=== PATIENT | male | born 1935 | race Caucasian/White ===

== ENCOUNTER 2016-05-17 21:34 | Emergency (ER) | payer MEDICARE, OTHER ==
[~2016-05-17] VITALS: Ht 170.2 cm; Wt 72.6 kg
[~2016-05-17 21:34] MED LIST: DM/P295L13 PO; ENXP40I.4 SQ; HTN MED; LISI1TAB PO; LORA10TA7 PO; TR025C15 TOP
[2016-05-17 22:02] LABS: BASOPHILS # (AUTO) 0.1 10^3/uL (0.0-0.1); BASOPHILS % (AUTO) 0 % (0-10); EOSINOPHILS # (AUTO) 0.2 10^3/uL (0.0-0.3); EOSINOPHILS % (AUTO) 1 % (0-10); LYMPHOCYTES # (AUTO) 1.5 X 10^3 (1.0-4.0); LYMPHOCYTES % (AUTO) 9 % (12-44); MEAN CORPUSCULAR HEMOGLOBIN 32 PG (25-34); MEAN CORPUSCULAR HGB CONC 35 G/DL (32-36); MEAN CORPUSCULAR VOLUME 94 FL (80-99); MEAN PLATELET VOLUME 9.2 FL (7.4-10.4); MONOCYTES % (AUTO) 6 % (0-12); NEUTROPHILS # (AUTO) 14.1 X 10^3 (1.8-7.8); NEUTROPHILS % (AUTO) 84 % (42-75); PLATELET COUNT 168 10^3/uL (130-400); RED BLOOD COUNT 4.91 10^6/uL (4.35-5.85); RED CELL DISTRIBUTION WIDTH 12.8 % (10.0-14.5); WHITE BLOOD COUNT 16.8 10^3/uL (4.3-11.0)
[2016-05-17 22:15] LABS: BAND NEUTROPHILS 0 %; BASOPHILS % (MANUAL) 0 %; EOSINOPHILS % (MANUAL) 0 %; LYMPHOCYTES % (MANUAL) 22 %; NEUTROPHILS % (MANUAL) 77 %
[2016-05-17 22:17] LABS: CALCIUM 8.8 MG/DL (8.5-10.1); CREATININE SERUM 1.95 MG/DL (0.60-1.30); POTASSIUM 4.1 MMOL/L (3.6-5.0)
--- NOTE | 2016-05-17 22:17 | ED Back Pain ---
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 DENIES INJURY BUT DOES REPORT DID WORK OUTSIDE YESTERDAY AND WAS PERFORMING YARD WORK, HEAVY LIFTING Nursing Sepsis Screen: No Definite Risk Source of Information: Patient Exam Limitations: No Limitations (CHRIS BAE APRN) History of Present Illness Time Seen by Provider: 22:14 Initial Comments To ER with sudden onset right low back pain. The pain radiated down both of his legs. This was sudden onset 1 hour prior to arrival walking. Denies injury. No loss of bowel or bladder control. No saddle anesthesia. No fevers or chills. He was given 200mcg of Fentanyl in the ambulance on the way to the hospital. Location: Lumbar Spine Timing/Duration: 1-3 Hours Severity: Severe Modifying Factors: Worse With Movement Associated Symptoms: lower back pain (CHRIS BAE APRN) Allergies and Home Medications Allergies Coded Allergies: Gramicidin D (Unverified Allergy, Unknown, 05/16/06) Iodine (Unverified Allergy, Unknown, 05/16/06) Neomycin (Unverified Allergy, Unknown, 05/16/06) Polymyxin B (Unverified Allergy, Unknown, 05/16/06) Soap *RETIRED-06/24/10 (Unverified Allergy, Unknown, 05/16/06) bacitracin (Unverified Allergy, Unknown, 05/16/06) povidone-iodine (Unverified Allergy, Unknown, 05/16/06) Home Medications Enoxaparin Sodium 40 Mg/0.4 Ml Disp.syrin #7 1 EACH SQ DAILY (Reported) Hctz/Lisinopril 1 Each Tablet 1 EACH PO DAILY (Reported) Loratadine 10 Mg Tablet 10 MG PO DAILY (Reported) Triamcinolone Acet 15 Gm Tube 0 TOP TID (Reported) APPLY SPRARINGLY TO AFFECTED AREA(S) Constitutional: see HPI EENTM: see HPI Respiratory: no symptoms reported Cardiovascular: no symptoms reported Genitourinary: no symptoms reported Musculoskeletal: see HPI back pain Skin: no symptoms reported Psychiatric/Neurological: No Symptoms Reported (CHRIS BAE APRN) Past Buiopde-Emmdvr-Jbbeax Hx Patient Social History Alcohol Use: Denies Use Recreational Drug Use: No Smoking Status: Never a Smoker Recent Foreign Travel: No Contact w/Someone Who Travel: No Recent Infectious Disease Expo: No Recent Hopitalizations: No (CHRIS BAE APRN) Surgeries HX Surgeries: Yes (5 YRS AGO, 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) (CHRIS BAE APRN) Respiratory Hx Respiratory Disorders: No (CHRIS BAE APRN) Reproductive System Hx Reproductive Disorders: No (CHRIS BAE APRN) Genitourinary Hx Genitourinary Disorders: No (CHRIS BAE APRN) Gastrointestinal Hx Gastrointestinal Disorders: No (CHRIS BAE APRN) Endocrine Hx Endocrine Disorders: No (CHRIS BAE APRN) Blood Transfusions Hx Blood Disorders: No (CHRIS BAE APRN) Physical Exam Vital Signs Vital Sign - Last 12Hours 05/17/16 05/17/16 21:34 23:50 Temp 95.0 Pulse 88 Resp 16 B/P 187/111 Pulse Ox 99 O2 Delivery Room Air O2 Flow Rate 2.00 (MARSHALL ADAMS DO) Vital Signs Capillary Refill : Less Than 3 Seconds (CHRIS BAE APRN) General Appearance: No Apparent Distress WD/WN HEENT: PERRL/EOMI TMs Normal Neck: Full Range of Motion Normal Inspection Respiratory: No Accessory Muscle Use No Respiratory Distress Gastrointestinal: Normal Bowel Sounds Non Tender Soft Extremity: Normal Capillary Refill Normal Inspection Other (the posterior tibial pulse in the left leg is +2. I do not palpate a posterior tibial pulse in the right leg however this foot is warm) Neurologic/Psychiatric: Alert Skin: Normal Color Warm/Dry (CHRIS BAE APRN) Progress/Results/Core Measures Results/Orders Lab Results Laboratory Tests Test 05/17/16 21:54 Range/Units Anion Gap 14 5-14 MMOL/L BUN/Creatinine Ratio 12 Band Neutrophils 0 % Basophils # (Auto) 0.1 0.0-0.1 10^3/uL Basophils % (Manual) 0 % Basophils (%) (Auto) 0 0-10 % Blood Morphology Comment NORMAL Blood Urea Nitrogen 24 H 7-18 MG/DL Calcium Level 8.8 8.5-10.1 MG/DL Carbon Dioxide Level 20 L 21-32 MMOL/L Chloride Level 106 98-107 MMOL/L Creatinine 1.95 H 0.60-1.30 MG/DL Eosinophils # (Auto) 0.2 0.0-0.3 10^3/uL Eosinophils % (Manual) 0 % Eosinophils (%) (Auto) 1 0-10 % Erythrocyte Sedimentation Rate 3 0-30 MM/HR Estimat Glomerular Filtration Rate 33 Glucose Level 139 H 70-105 MG/DL Hematocrit 46 40-54 % Hemoglobin 15.9 13.3-17.7 G/DL Lymphocytes # (Auto) 1.5 1.0-4.0 X 10^3 Lymphocytes % (Manual) 22 % Lymphocytes (%) (Auto) 9 L 12-44 % Mean Corpuscular Hemoglobin 32 25-34 PG Mean Corpuscular Hemoglobin Concent 35 32-36 G/DL Mean Corpuscular Volume 94 80-99 FL Mean Platelet Volume 9.2 7.4-10.4 FL Monocytes # (Auto) 1.0 0.0-1.0 X 10^3 Monocytes % (Manual) 1 % Monocytes (%) (Auto) 6 0-12 % Neutrophils # (Auto) 14.1 H 1.8-7.8 X 10^3 Neutrophils % (Manual) 77 % Neutrophils (%) (Auto) 84 H 42-75 % Platelet Count 168 130-400 10^3/uL Potassium Level 4.1 3.6-5.0 MMOL/L Red Blood Count 4.91 4.35-5.85 10^6/uL Red Cell Distribution Width 12.8 10.0-14.5 % Sodium Level 140 135-145 MMOL/L White Blood Count 16.8 H 4.3-11.0 10^3/uL (MARSHALL ADAMS DO) Medications Given in ED Current Medications Medications Dose Ordered Sig/Alejandra Route Start Time Stop Time Status Last Admin Dose Admin Esmolol HCl 250 ml STK-MED ONCE IV 05/17/16 23:44 05/17/16 23:46 DC 05/17/16 23:50 (MARSHALL ADAMS DO) Vital Signs/I&O Vital Sign - Last 12Hours 05/17/16 05/17/16 21:34 23:50 Temp 95.0 98.5 Pulse 88 82 Resp 16 16 B/P 187/111 160/89 Pulse Ox 99 96 O2 Delivery Room Air Nasal Cannula O2 Flow Rate 2.00 (MARSHALL ADAMS DO) Blood Pressure Mean: 136 Progress Note : Progress Note Discussed case c/ Dr. Lundberg, the Cardiothoracic surgeon clinical practice consultant @ [facility] ( patient's referring hospital of choice). He has accepted the patient in transfer to the ICU and requests we start him on a Esmolol drip in effort to lower his systolic BP to 110 &/or pulse to 60. (MARSHALL ADAMS DO) ECG Initial ECG Impression Date: May 17, 2016 Initial ECG Impression Time: 23:45 Initial ECG Rate: 83 Initial ECG Rhythm: Normal Sinus Initial ECG Impression: Normal Initial ECG Comparisson: No Previous ECG Available (MARSHALL ADAMS DO) Diagnostic Imaging Diagonstic Imaging: CT, Ultrasound (apparent dissecting AAA) Plain Films/CT/US/NM/MRI: abdomen, pelvis ((+) AAA) Reviewed: Reviewed [place] Study (MARSHALL ADAMS DO) Departure Communication Progress Notes 2250-care turned over to Dr. Adams. CT abdomen and pelvis without contrast pending and ultrasound of the aorta and right leg arterial system pending. (CHRIS BAE APRN) Impression Impression: Primary Impression: Dissecting abdominal aortic aneurysm (AAA) Disposition: 02 XFER SHT-TRM HOSP Condition: Stable Transfer Transfer Time: 23:36 Transfer Facility: [facility] Method of Transfer: Air (MARSHALL ADAMS DO) Departure-Patient Inst. Referrals: MIKAL BOYER DO (PCP/Family) Primary Care Physician CHRIS BAE APRN May 17, 2016 22:17 MARSHALL ADAMS DO May 17, 2016 23:59
[2016-05-17] MEDS ORDERED: LABETALOL HCL 20 MG/4 ML VIAL IV ONE (22:30)
[2016-05-17 23:08] LABS: ERYTHROCYTE SEDIMENTATION RATE 3 MM/HR (0-30)
[2016-05-17] MEDS ORDERED: ESMOLOL IV ONE (23:39)
[2016-05-17] MEDS ORDERED: ESMOLOL DRIP PREMIX 250 ML IV ONE (23:44)
[2016-05-18 00:29] VITALS: BP 158/92
--- NOTE | 2016-05-18 07:19 | Diagnostic Imaging Report ---
INDICATION: Weak pulse right leg. FINDINGS: Real-time imaging shows no significant atherosclerotic plaquing. The Doppler sampling shows normal biphasic waveforms throughout the lower extremity to the ankle. There is noted a large popliteal aneurysm with thrombus present. There is no evidence of occlusive disease. Popliteal aneurysm measured approximately 3 cm in greatest dimension. IMPRESSION: 1. Popliteal aneurysm with mural thrombus. 2. Normal velocities and waveforms noted throughout the right lower extremity with no evidence of occlusive disease. These findings are in agreement with the preliminary report. Dictated by: Dictated on workstation # [id number]
--- NOTE | 2016-05-18 07:31 | Diagnostic Imaging Report ---
INDICATION: Abdominal pain. FINDINGS: There is abdominal aneurysm in the mid to distal aorta. This measures 4.2 cm in greatest diameter. There is mural thrombus present. Real-time imaging does suggest a dissection with mobile flap demonstrated. No evidence of periaortic fluid. IMPRESSION: Abdominal aortic aneurysm measuring 4.2 cm with probable dissection noted. Would recommend contrasted imaging for confirmation. Dictated by: Dictated on workstation # [id number]
--- NOTE | 2016-05-18 07:38 | Diagnostic Imaging Report ---
PROCEDURE: CT abdomen and pelvis without contrast. TECHNIQUE: Multiple contiguous axial images were obtained through the abdomen and pelvis without the use of intravenous contrast. INDICATION: Low back pain. FINDINGS: Lung bases are clear. Aorta is densely calcified. There is aneurysmal dilatation of the distal aorta measuring upwards of 5.2 x 4.2 cm in the distal aorta. There is no evidence of aortic rupture. No periaortic fluid present. There is no free fluid present. Liver appears normal. The gallbladder and bile ducts are normal. Pancreas and spleen are normal. Adrenal glands are normal. Kidneys show no evidence of obstruction or calculi. There is a cyst in the midportion of the right kidney anteriorly measuring 1.5 cm. Bowel gas pattern appears normal with no obstruction. There is no free air or free fluid. The appendix is visualized and normal. There is diverticulosis of the sigmoid colon without evidence of diverticulitis. IMPRESSION: Abdominal aortic aneurysm involving the distal aorta measuring upwards of 5.2 x 4.2 cm. Aortic dissection cannot be excluded with noncontrasted study. No evidence of aortic rupture. These findings are in agreement with preliminary report. Dictated by: Dictated on workstation # [id number]
--- NOTE | 2016-05-18 07:43 | Diagnostic Imaging Report ---
PROCEDURE: CT lumbar spine without contrast. TECHNIQUE: Multiple contiguous axial images were obtained through the lumbar spine without the use of intravenous contrast. Sagittal and coronal reformations were then performed. INDICATION: Severe back pain. FINDINGS: Sagittal and coronal images show good alignment of the vertebral bodies with minimal scoliosis. No evidence of compression fractures. Facets are intact. Advanced degenerative facet disease noted throughout. There is also advanced degenerative disc disease throughout with loss of disc space height and large bony osteophytes anteriorly. There is moderate foraminal encroachment noted on the left at L3-L4 and L4-L5. SI joints show degenerative changes. There is abdominal aortic aneurysm. See previous CT abdomen report and aortic ultrasound report. IMPRESSION: 1. 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 No acute bony abnormalities. 2. Abdominal aortic aneurysm. See CT abdomen and pelvis report as well as abdominal aortic ultrasound report for detail. Dictated by: Dictated on workstation # [id number]
== END 2016-05-18 00:29 | disposition short-term general hospital (02) ==
LOC: EDUNIT# 21:35 → ER 21:37
DX: I71.4 Abdominal aortic aneurysm, without rupture (principal); I82.431 Acute embolism and thrombosis of right popliteal vein; M51.36 Other intervertebral disc degeneration, lumbar region; Z79.899 Other long term (current) drug therapy
CPT/HCPCS: 36415; 72131; 74176; 76775; 80048; 85007; 85027; 85652; 93926; 96365

== ENCOUNTER → 2016-06-20 | Outpatient (CLI) | payer MEDICARE, OTHER ==
--- OUTSIDE RECORDS SUMMARY | 2016-06-20 09:29 | XMS REPORT | Continuity of Care Document ---
Author Author [facility] Organization [facility] Address Unknown Phone Unavailable Care Team Providers Care Drawing Operator Name Role Phone MIKAL BOYER DO PCP Insurance Providers Payer Name Policy Number Subscriber Name Relationship [employer] [id number] Eric Willingham 18 Self / Same As Patient Comm Crossover Enter Ins Name [id number] Eric Willingham 18 Self / Same As Patient Advance Directives Directive Response Recorded Date/Time Advance Directives No 05/17/16 9:34pm Resuscitation Status Full Code 05/17/16 9:34pm Chief Complaint and Reason for Visit Chief Complaint Back Problems Reason for Visit Dissecting abdominal aortic aneurysm (AAA) Problems Active Problems Medical Problem Onset Date Status Dissecting abdominal aortic aneurysm (AAA) Unknown Acute Medications Current Home Medications Medication Dose Units Route Directions Days/Qty Instructions Start Date Hctz/Lisinopril (Zestoretic) 1 Each 1 Each Oral Daily 09/29/11 Loratadine 10 Mg 10 Mg Oral Daily 09/29/11 Triamcinolone Acetonide 15 Gm 0 Topically Three Times A Day APPLY SPRARINGLY TO AFFECTED AREA(S) 09/29/11 Enoxaparin Sodium 40 Mg/0.4 Ml 1 Each Sub-Q Daily 7 10/04/11 Social History Social History Problem Response Recorded Date/Time Alcohol Use Denies Use 05/17/2016 9:34pm Recreational Drug Use No 05/17/2016 9:34pm Recent Foreign Travel No 05/17/2016 9:34pm Recent Infectious Disease Exposure No 05/17/2016 9:34pm Hospitalization with Isolation Denies 05/17/2016 9:34pm Smoking Status Never a Smoker 05/17/2016 9:34pm Recent Hopitalizations No 05/17/2016 9:34pm Hospitalization with Isolation Denies 05/17/2016 9:34pm Query Response Start Date Stop Date Smoking Status Never a Smoker Hospital Discharge Instructions No hospital discharge instructions. Plan of Care Discharge Date 05/18/16 12:29am Disposition 02 XFER SHT-TRM HOSP Condition at Discharge Stable Prescriptions See Medication Section Referrals MIKAL BOYER DO - Primary Care Physician Functional Status No functional status results. Allergies, Adverse Reactions, Alerts Allergen Type Severity Reaction Status Last Updated iodine ([id number]) Allergy Unknown Active 05/16/06 Soap *RETIRED-06/24/10 Allergy Unknown Active 05/16/06 neomycin ([id number]) Allergy Unknown Active 05/16/06 bacitracin ([id number]) Allergy Unknown Active 05/16/06 gramicidin D ([id number]) Allergy Unknown Active 05/16/06 povidone-iodine ([id number]) Allergy Unknown Active 05/16/06 Polymyxin b Allergy Unknown Active 05/16/06 Immunizations No immunization records. Vital Signs Acute Vital Signs Vital Response Date/Time Temperature (Fahrenheit) 98.8 degrees F (97.6 - 99.5) 05/18/2016 12:29am Temperature (Calculated Celsius) 37.22715 degrees C (36.4 - 37.5) 05/18/2016 12:29am Temperature Source Tympanic 05/18/2016 12:29am Pulse Rate (adult) 72 bpm (60 - 90) 05/18/2016 12:29am Respiratory Rate 18 bpm (12 - 24) 05/18/2016 12:29am O2 Sat by Pulse Oximetry 96 % (88 - 100) 05/18/2016 12:29am Blood Pressure 158/92 mm Hg 05/18/2016 12:29am Blood Pressure Mean 112 mm Hg 05/17/2016 11:50pm Pain Numeric Pain Scale 0-No Pain 05/18/2016 12:29am Pain Intensity 0 05/17/2016 11:50pm Height (Feet) 5 feet 05/17/2016 9:34pm Height (Inches) 7 inches 05/17/2016 9:34pm Height (Calculated Centimeters) 170.771798 cm 05/17/2016 9:34pm Weight (Pounds) 160 pounds 05/17/2016 9:34pm Weight (Calculated Kilograms) 72.859957 kilograms 05/17/2016 9:34pm Capillary Refill Capillary Refill Less Than 3 Seconds 05/17/2016 9:34pm Height 5 ft 7 in Weight 160 lb Body Mass Index 25.1 kg/m^2 Results Laboratory Results Test Name Result Units Flags Reference Collection Date/Time Result Date/ Time Comments White Blood Count 16.8 10^3/uL H 4.3-11.0 05/17/2016 9:54pm 05/17/2016 10 :03pm Red Blood Count 4.91 10^6/uL 4.35-5.85 05/17/2016 9:54pm 05/17/2016 10: 03pm Hemoglobin 15.9 G/DL 13.3-17.7 05/17/2016 9:54pm 05/17/2016 10:03pm Hematocrit 46 % 40-54 05/17/2016 9:54pm 05/17/2016 10:03pm Mean Corpuscular Volume 94 FL 80-99 05/17/2016 9:54pm 05/17/2016 10: 03pm Mean Corpuscular Hemoglobin 32 PG 25-34 05/17/2016 9:54pm 05/17/2016 10 :03pm Mean Corpuscular Hemoglobin Concent 35 G/DL 32-36 05/17/2016 9:54pm 10:03pm Red Cell Distribution Width 12.8 % 10.0-14.5 05/17/2016 9:54pm 2016 10:03pm Platelet Count 168 10^3/uL 130-400 05/17/2016 9:54pm 05/17/2016 10: 03pm Mean Platelet Volume 9.2 FL 7.4-10.4 05/17/2016 9:54pm 05/17/2016 10: 03pm Neutrophils (%) (Auto) 84 % H 42-75 05/17/2016 9:54pm 05/17/2016 10:03pm Lymphocytes (%) (Auto) 9 % L 12-44 05/17/2016 9:54pm 05/17/2016 10:03pm Monocytes (%) (Auto) 6 % 0-12 05/17/2016 9:54pm 05/17/2016 10:03pm Eosinophils (%) (Auto) 1 % 0-10 05/17/2016 9:54pm 05/17/2016 10:03pm Basophils (%) (Auto) 0 % 0-10 05/17/2016 9:54pm 05/17/2016 10:03pm Neutrophils # (Auto) 14.1 X 10^3 H 1.8-7.8 05/17/2016 9:54pm 05/17/2016 10:03pm Lymphocytes # (Auto) 1.5 X 10^3 1.0-4.0 05/17/2016 9:54pm 05/17/2016 10 :03pm Monocytes # (Auto) 1.0 X 10^3 0.0-1.0 05/17/2016 9:54pm 05/17/2016 10: 03pm Eosinophils # (Auto) 0.2 10^3/uL 0.0-0.3 05/17/2016 9:54pm 05/17/2016 10:03pm Basophils # (Auto) 0.1 10^3/uL 0.0-0.1 05/17/2016 9:54pm 05/17/2016 10: 03pm Neutrophils % (Manual) 77 % 05/17/2016 9:54pm 05/17/2016 10:16pm Band Neutrophils 0 % 05/17/2016 9:54pm 05/17/2016 10:16pm Lymphocytes % (Manual) 22 % 05/17/2016 9:54pm 05/17/2016 10:16pm Monocytes % (Manual) 1 % 05/17/2016 9:54pm 05/17/2016 10:16pm Eosinophils % (Manual) 0 % 05/17/2016 9:54pm 05/17/2016 10:16pm Basophils % (Manual) 0 % 05/17/2016 9:54pm 05/17/2016 10:16pm Blood Morphology Comment NORMAL 05/17/2016 9:54pm 05/17/2016 10: 16pm Erythrocyte Sedimentation Rate 3 MM/HR 0-30 05/17/2016 9:54pm 2016 11:08pm Sodium Level 140 MMOL/L 135-145 05/17/2016 9:54pm 05/17/2016 10:18pm Potassium Level 4.1 MMOL/L 3.6-5.0 05/17/2016 9:54pm 05/17/2016 10: 18pm Chloride Level 106 MMOL/L 98-107 05/17/2016 9:54pm 05/17/2016 10:18pm Carbon Dioxide Level 20 MMOL/L L 21-32 05/17/2016 9:54pm 05/17/2016 10: 18pm Anion Gap 14 MMOL/L 5-14 05/17/2016 9:54pm 05/17/2016 10:18pm Blood Urea Nitrogen 24 MG/DL H 7-18 05/17/2016 9:54pm 05/17/2016 10:18pm Creatinine 1.95 MG/DL H 0.60-1.30 05/17/2016 9:54pm 05/17/2016 10:18pm BUN/Creatinine Ratio 12 05/17/2016 9:54pm 05/17/2016 10:18pm Estimat Glomerular Filtration Rate 33 05/17/2016 9:54pm 05/17/2016 10:18pm GFR INTERPRETIVE DATA UNITS FOR ESTIMATED GFR (eGFR): mL/min/1.73 M2 REFERENCE RANGE FOR ESTIMATED GFR (eGFR) eGFR NORMAL eGFR >60 MODERATELY DECREASED eGFR 30-59 SEVERLY DECREASED eGFR 15-29 KIDNEY FAILURE <15 (OR DIALYSIS) Glucose Level 139 MG/DL H 70-105 05/17/2016 9:54pm 05/17/2016 10:18pm Calcium Level 8.8 MG/DL 8.5-10.1 05/17/2016 9:54pm 05/17/2016 10:18pm Procedures No known history of procedures. Encounters Encounter Location Arrival/Admit Date Discharge/Depart Date Attending Provider Departed Emergency Room [facility] 05/17/16 9:37pm 05/18 12:29am CHRIS BAE APRN Recent Diagnosis
--- NOTE | 2016-06-20 10:38 | Diagnostic Imaging Report ---
PROCEDURE: US Bilateral lower extremity arterial. TECHNIQUE: Multiple real-time grayscale images are obtained through both lower extremity arterial systems with color Doppler imaging and color Doppler spectral analysis. INDICATION: Followup popliteal artery aneurysm. FINDINGS: The right lower extremity arteries demonstrate patency with color flow and triphasic waveforms in the femoropopliteal arteries transitioning into biphasic waveforms within the posterior tibial and dorsalis pedis arteries. There is diminished flow velocity in the right posterior tibial artery of 17 cm/s. The velocity in the right dorsalis pedis is 56 cm/s. There is no significant elevated velocity to suggest a high-grade focal stenosis. The popliteal artery, however, has a 3.1 cm aneurysm with significant intramural thrombus seen. The central lumen is patent. In the left lower extremity, there is color Doppler flow seen with biphasic waveforms in the femoropopliteal and infrapopliteal arteries. The left popliteal artery demonstrates aneurysmal dilatation to 2 cm. There is mild to moderate intramural thrombus seen. There is no evidence of high-grade stenosis. When compared with the right lower extremity arterial ultrasound from 05/17/2016, there is no significant change in the right popliteal artery aneurysm. No prior study is available to compare the left lower extremity arteries. 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 The findings were discussed with Dr. Lundberg by Dr. Galan at time of dictation. Dictated by: Dictated on workstation # [id number]
--- NOTE | 2016-06-20 12:20 | Diagnostic Imaging Report ---
PROCEDURE: CT abdomen and pelvis without contrast. TECHNIQUE: Multiple contiguous axial images were obtained through the abdomen and pelvis without the use of intravenous contrast. INDICATION: Abdominal aortic aneurysm. FINDINGS: The lung bases appear clear. The liver, the gallbladder, the spleen, the pancreas, and adrenal glands appear unremarkable for unenhanced exam. The kidneys demonstrate no hydronephrosis. When compared to 05/17/2016, there is endovascular repair with an aortoiliac bifurcating graft seen in place. The landing zone of the stent graft is in the common iliac artery on both sides. There is improvement in the previously seen heterogeneous density within the aneurysm sac and there is interval minimal decrease in the maximum diameter of the aneurysm sac from 5.2 to 5 cm on the current exam. There is no perianeurysmal hematoma. No significant free fluid or fluid collection in the abdomen or pelvis. There is numerous diverticulosis. No diverticulitis. Advanced degenerative changes in the lumbar spine with mild right convex scoliosis seen. There is internal fixation hardware in the right proximal femur partially visualized. IMPRESSION: 1. Status post EAVR with minimal decrease in the size of the infrarenal AAA, now at 5 cm in maximum diameter. 2. Diverticulosis. No diverticulitis. Dictated by: Dictated on workstation # [id number]
== END ==
LOC: RAD 09:25
PROVIDERS: ATTEND Thoracic Surgery (Cardiothoracic Vascular Surgery)
DX: I72.4 Aneurysm of artery of lower extremity (principal); N28.9 Disorder of kidney and ureter, unspecified; Z95.828 Presence of other vascular implants and grafts
CPT/HCPCS: 74176; 93925

== ENCOUNTER → 2016-06-23 | Outpatient (CLI) | payer MEDICARE, OTHER ==
--- NOTE | 2016-06-23 12:30 | Diagnostic Imaging Report ---
PROCEDURE: US Aorta Doppler. TECHNIQUE: Multiple real time grayscale images were obtained over the abdominal aorta in various projections. INDICATION: Abdominal aortic aneurysm repair. FINDINGS: Ultrasonography of the abdominal aorta is performed. Portions of the abdominal aorta proximally are obscured due to overlying bowel. There is endoluminal stent graft within the abdominal aorta. Midportion of the abdominal aorta measures 2.4 x 3.1 cm in size including the aneurysm sac. Distally the aorta measures 2.7 x 2.3 cm including the aneurysm sac. Right iliac artery is 1.5 cm in diameter with left iliac diameter of 1.1 cm. Arterial flow is seen within the stent graft. There is no evidence of retroperitoneal fluid collection. IMPRESSION: Patency of abdominal aortic stent graft. Proximal aorta is obscured with midportion measuring 3.1 x 2.4 cm and distal aorta measuring 2.7 x 2.3 cm. Dictated by: Dictated on workstation # [id number]
== END ==
LOC: RAD 09:22
PROVIDERS: ATTEND Thoracic Surgery (Cardiothoracic Vascular Surgery)
DX: I71.4 Abdominal aortic aneurysm, without rupture (principal); N28.9 Disorder of kidney and ureter, unspecified; Z95.828 Presence of other vascular implants and grafts
CPT/HCPCS: 93978

== ENCOUNTER → 2016-07-28 | Outpatient (CLI) | payer MEDICARE, OTHER ==
[2016-07-28 08:46] LABS: MEAN PLATELET VOLUME 9.5 FL (7.4-10.4); RED BLOOD COUNT 4.7 10^6/uL (4.35-5.85); RED CELL DISTRIBUTION WIDTH 13.1 % (10.0-14.5); WHITE BLOOD COUNT 8.2 10^3/uL (4.3-11.0)
[2016-07-28 09:02] LABS: ALBUMIN 4.2 G/DL (3.2-4.5); BILIRUBIN,TOTAL 0.8 MG/DL (0.1-1.0); CALCIUM 9.3 MG/DL (8.5-10.1); CREATININE SERUM 1.76 MG/DL (0.60-1.30); POTASSIUM 4.2 MMOL/L (3.6-5.0)
[2016-07-28 09:04] LABS: BILIRUBIN,URINE NEGATIVE (NEGATIVE); KETONES,URINE NEGATIVE (NEGATIVE); LEUKOCYTE ESTERASE ,URINE 1+ (NEGATIVE); NITRITE,URINE NEGATIVE (NEGATIVE); PH,URINE 6 (5-9); PROTEIN,URINE 1+ (NEGATIVE); UROBILINOGEN,URINE NORMAL (NORMAL)
[2016-07-28 09:15] LABS: SQUAMOUS EPITHELIAL CELL,UR RARE /HPF; WBC,URINE 0-2 /HPF
--- NOTE | 2016-07-28 13:36 | Diagnostic Imaging Report ---
PA and lateral views of the chest. INDICATION: Preoperative evaluation. FINDINGS: The lungs are hyperinflated with no focal infiltrate. Background interstitial thickening is seen compatible with COPD. The heart size is normal. No effusion or pneumothorax. Mediastinum and brooklynn appear unremarkable. There is an aortic endograft in the abdomen identified. Degenerative changes and osseous structures seen. IMPRESSION: COPD. No acute process. Dictated by: Dictated on workstation # [id number]
== END ==
LOC: CARD 08:11
PROVIDERS: ATTEND Thoracic Surgery (Cardiothoracic Vascular Surgery)
DX: Z01.818 Encounter for other preprocedural examination (principal); I72.4 Aneurysm of artery of lower extremity
CPT/HCPCS: 36415; 71020; 80053; 81000; 85027; 93005

== ENCOUNTER → 2016-09-13 | Outpatient (CLI) | payer MEDICARE, OTHER ==
--- NOTE | 2016-09-13 14:19 | Diagnostic Imaging Report ---
PROCEDURE: US Bilateral lower extremity arterial. TECHNIQUE: Multiple real-time grayscale images are obtained through both lower extremity arterial systems with color Doppler imaging and color Doppler spectral analysis. INDICATION: Popliteal artery aneurysm. CORRELATION STUDY: 06/20/2016 FINDINGS: The bilateral lower extremity arterial systems are patent at the level of the ankles. There is mixed, predominantly triphasic with some areas of scattered biphasic waveforms present. No significant velocity change or findings to suggest a focal area of stenosis. At the level of the right popliteal artery, there has been apparent aneurysm repair with placement of a stent which is patent. On the left, there is a left popliteal artery aneurysm measuring approximately 14 x 17 mm. IMPRESSION: 1. The bilateral lower extremity arterial systems are patent to the level of the ankles. No high degree velocity change to suggest a focal area of stenosis. 2. Apparent interval placement of a stent at the right popliteal artery which is patent. 3. Relatively stable left popliteal artery aneurysm. Dictated by: Dictated on workstation # [id number]
== END ==
LOC: RAD 08:46
PROVIDERS: ATTEND Nurse Practitioner
DX: I72.4 Aneurysm of artery of lower extremity (principal)
CPT/HCPCS: 93925

== ENCOUNTER → 2016-11-04 | Outpatient (CLI) | payer MEDICARE, OTHER ==
--- NOTE | 2016-11-04 19:22 | Diagnostic Imaging Report ---
Three views of the left ribs. INDICATION: Injury. FINDINGS: There is no fracture or dislocation. There is an aortic graft partially visualized in the abdominal aorta. The right lung demonstrates minimal basilar atelectasis or scarring. IMPRESSION: No fracture seen. Dictated by: Dictated on workstation # [id number]
== END ==
LOC: RAD 11:17
PROVIDERS: ATTEND Family Medicine
DX: S29.9XXA Unspecified injury of thorax, initial encounter (principal); X58.XXXA Exposure to other specified factors, initial encounter; Y99.8 Other external cause status
CPT/HCPCS: 71100

== ENCOUNTER → 2017-02-27 | Outpatient (CLI) | payer MEDICARE, OTHER ==
--- NOTE | 2017-02-27 22:11 | Diagnostic Imaging Report ---
PROCEDURE: US Bilateral lower extremity arterial. TECHNIQUE: Multiple real-time grayscale images are obtained through both lower extremity arterial systems with color Doppler imaging and color Doppler spectral analysis. INDICATION: Peripheral vascular disease. In the right leg, there are normal velocities and waveforms from the groin to the knee. There is a stent in the right popliteal artery with a surrounding aneurysm sac seen. There is no sonographically detectable flow in the aneurysm sac. Dorsalis pedis is patent in the right foot. The right posterior tibial artery appeared to occlude distally. In left leg, there are normal velocities and waveforms from the groin to the knee. There is a popliteal artery aneurysm on the left that measures 1.7 cm in diameter with a thin rim of thrombus. The dorsalis pedis and posterior tibial arteries are both patent at the ankle. IMPRESSION: Patient has bilateral popliteal artery aneurysms. The left popliteal artery aneurysm has been previously stented with residual aneurysm sac. The right popliteal artery aneurysm measures 17 mm in diameter. It appears similar to a comparison study dated 09/13/2016. Dictated by: Dictated on workstation # [id number]
== END ==
LOC: RAD 12:36
PROVIDERS: ATTEND Thoracic Surgery (Cardiothoracic Vascular Surgery)
DX: I72.4 Aneurysm of artery of lower extremity (principal); Z95.820 Peripheral vascular angioplasty status with implants and grafts
CPT/HCPCS: 93925

== ENCOUNTER → 2017-03-28 | Outpatient (CLI) | payer MEDICARE, OTHER ==
--- NOTE | 2017-03-28 14:14 | Diagnostic Imaging Report ---
INDICATION: Cold right foot and pain for several days. TECHNIQUE: Routine sonographic evaluation with color and duplex Doppler imaging performed of the right lower extremity arterial system. FINDINGS: There is absence of any detectable flow within the right lower leg. This originates at approximately the level of the distal superficial femoral artery and extending through the popliteal artery through the tibioperoneal trifurcation. There may be minimal amount of flow noted in the distal anterior and posterior tibial artery perhaps from collateral vessels. More proximally, there is flow within the common femoral artery as well as proximal and mid aspect of the superficial femoral artery becoming slightly dampened in the mid aspect and then with elevated velocity distally. IMPRESSION: There is essentially no detectable flow from level of the distal thigh through the remainder of the lower leg. There appears to be likely occlusion at the distal aspect of the superficial femoral artery, popliteal artery, and through the tibioperoneal trifurcation and calf vessels. (This is changed from previous examination of one month earlier.) Findings were provided to the referring physician by the fish net stringer at time of imaging. Dictated by: Dictated on workstation # [id number]
== END ==
LOC: RAD 12:14
PROVIDERS: ATTEND Family Medicine
DX: I73.9 Peripheral vascular disease, unspecified (principal)
CPT/HCPCS: 93926

== ENCOUNTER → 2017-04-10 | Outpatient (CLI) | payer MEDICARE, OTHER ==
[2017-04-10 10:08] LABS: ALBUMIN 3.6 GM/DL (3.2-4.5); CALCIUM 8.7 MG/DL (8.5-10.1); CREATININE SERUM 2.48 MG/DL (0.60-1.30); PHOSPHORUS 3.2 MG/DL (2.3-4.7); POTASSIUM 3.9 MMOL/L (3.6-5.0)
== END ==
LOC: LAB 09:25
PROVIDERS: ATTEND Nurse Practitioner
DX: N18.9 Chronic kidney disease, unspecified (principal)
CPT/HCPCS: 36415; 80069

== ENCOUNTER → 2017-04-24 | Outpatient (CLI) | payer MEDICARE, OTHER ==
[2017-04-24 09:19] LABS: BILIRUBIN,URINE NEGATIVE (NEGATIVE); CLARITY,URINE CLEAR; COLOR,URINE YELLOW; GLUCOSE, URINE (UA) NEGATIVE (NEGATIVE); KETONES,URINE NEGATIVE (NEGATIVE); LEUKOCYTE ESTERASE ,URINE NEGATIVE (NEGATIVE); NITRITE,URINE NEGATIVE (NEGATIVE); PH,URINE 5 (5-9); PROTEIN,URINE NEGATIVE (NEGATIVE); UROBILINOGEN,URINE NORMAL (NORMAL)
[2017-04-24 09:20] LABS: BASOPHILS % (AUTO) 1 % (0-10); EOSINOPHILS # (AUTO) 0.2 10^3/uL (0.0-0.3); EOSINOPHILS % (AUTO) 3 % (0-10); HEMATOCRIT 38 % (40-54); HEMOGLOBIN 12.8 G/DL (13.3-17.7); LYMPHOCYTES # (AUTO) 1.2 X 10^3 (1.0-4.0); LYMPHOCYTES % (AUTO) 19 % (12-44); MEAN CORPUSCULAR HEMOGLOBIN 32 PG (25-34); MEAN CORPUSCULAR HGB CONC 34 G/DL (32-36); MEAN CORPUSCULAR VOLUME 95 FL (80-99); MEAN PLATELET VOLUME 9.1 FL (7.4-10.4); MONOCYTES # (AUTO) 0.6 X 10^3 (0.0-1.0); MONOCYTES % (AUTO) 9 % (0-12); NEUTROPHILS # (AUTO) 4.2 X 10^3 (1.8-7.8); NEUTROPHILS % (AUTO) 68 % (42-75); PLATELET COUNT 217 10^3/uL (130-400); RED BLOOD COUNT 4.01 10^6/uL (4.35-5.85); RED CELL DISTRIBUTION WIDTH 13.8 % (10.0-14.5); WHITE BLOOD COUNT 6.2 10^3/uL (4.3-11.0)
[2017-04-24 09:37] LABS: ALBUMIN 4.2 GM/DL (3.2-4.5); CALCIUM 9.5 MG/DL (8.5-10.1); CREATININE SERUM 2.32 MG/DL (0.60-1.30); PHOSPHORUS 3.5 MG/DL (2.3-4.7); POTASSIUM 3.9 MMOL/L (3.6-5.0)
[2017-04-24 09:39] LABS: BACTERIA,URINE TRACE /HPF; WBC,URINE RARE /HPF
== END ==
LOC: LAB 08:41
PROVIDERS: ATTEND Internal Medicine Nephrology
DX: D64.9 Anemia, unspecified (principal); I12.9 Hypertensive chronic kidney disease with stage 1 through stage 4 chronic kidney disease, or unspecified chronic kidney disease; N18.4 Chronic kidney disease, stage 4 (severe); E78.2 Mixed hyperlipidemia; I71.4 Abdominal aortic aneurysm, without rupture
CPT/HCPCS: 36415; 80069; 81000; 82306; 82570; 82728; 83540; 83970; 84156; 85025

== ENCOUNTER → 2017-05-26 | Outpatient (CLI) | payer MEDICARE, OTHER ==
--- NOTE | 2017-05-26 12:04 | Diagnostic Imaging Report ---
INDICATION: Right knee pain. TIME OF EXAM: 11:58 AM FINDINGS: Three views of the right knee demonstrate normal alignment. The joint spaces are maintained. The articular surfaces are smooth. There is chondrocalcinosis of the medial and lateral compartments. No fracture or dislocation is seen. There may be a small effusion. Popliteal and distal femoral stent is noted. IMPRESSION: Chronic changes and probable small knee joint effusion. No acute bony abnormality is detected. Dictated by: Dictated on workstation # [id number]
== END ==
LOC: RAD 11:27
PROVIDERS: ATTEND Family Medicine
DX: M25.561 Pain in right knee (principal); M25.461 Effusion, right knee
CPT/HCPCS: 73562

== ENCOUNTER → 2017-08-30 | Outpatient (CLI) | payer MEDICARE, OTHER ==
[2017-08-30 11:56] LABS: MEAN PLATELET VOLUME 8.9 FL (7.4-10.4); RED BLOOD COUNT 4.59 10^6/uL (4.35-5.85); RED CELL DISTRIBUTION WIDTH 14.4 % (10.0-14.5); WHITE BLOOD COUNT 6.1 10^3/uL (4.3-11.0)
[2017-08-30 12:12] LABS: ALBUMIN 4.2 GM/DL (3.2-4.5); CALCIUM 9.3 MG/DL (8.5-10.1); CREATININE SERUM 2.69 MG/DL (0.60-1.30); PHOSPHORUS 3.4 MG/DL (2.3-4.7)
[2017-08-30 12:30] LABS: BILIRUBIN,URINE NEGATIVE (NEGATIVE); CLARITY,URINE CLEAR; COLOR,URINE YELLOW; GLUCOSE, URINE (UA) NEGATIVE (NEGATIVE); KETONES,URINE NEGATIVE (NEGATIVE); LEUKOCYTE ESTERASE ,URINE NEGATIVE (NEGATIVE); NITRITE,URINE NEGATIVE (NEGATIVE); PH,URINE 6 (5-9); PROTEIN,URINE NEGATIVE (NEGATIVE); UROBILINOGEN,URINE NORMAL (NORMAL)
[2017-08-30 12:42] LABS: BACTERIA,URINE TRACE /HPF; RBC,URINE RARE /HPF; SQUAMOUS EPITHELIAL CELL,UR 0-2 /HPF
== END ==
LOC: LAB 11:31
PROVIDERS: ATTEND Internal Medicine Nephrology
DX: I12.9 Hypertensive chronic kidney disease with stage 1 through stage 4 chronic kidney disease, or unspecified chronic kidney disease (principal); N18.4 Chronic kidney disease, stage 4 (severe); D64.9 Anemia, unspecified; E87.2 Acidosis
CPT/HCPCS: 36415; 80069; 81000; 82306; 82570; 82728; 83540; 83550; 83970; 84156; 85027

== ENCOUNTER → 2017-12-21 | Outpatient (CLI) | payer MEDICARE, OTHER ==
--- NOTE | 2017-12-21 11:54 | Diagnostic Imaging Report ---
US RIGHT LOW EXT [id number] Technique: Multi-projectional grayscale, color Doppler and spectral Doppler imaging of the right lower extremity arteries was performed. Indication: Severe right groin pain. Comparison: 03/28/2017 Findings: By color Doppler imaging, the common femoral, superficial femoral, proximal deep femoral, and popliteal arteries are patent. Spectral analysis shows biphasic waveforms to be present. A stent is present within the popliteal artery and remains patent. No flow is detected within the distal posterior tibial artery. However, very low velocity monophasic waveforms are detected in the dorsalis pedis. Impression: 1. No high-grade stenosis or occlusion within the proximal right lower extremity arteries. 2. Popliteal artery stent is patent. 3. 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 Dictated by: Dictated on workstation # [id number]
== END ==
LOC: RAD 10:54
PROVIDERS: ATTEND Family Medicine
DX: I73.9 Peripheral vascular disease, unspecified (principal); R10.31 Right lower quadrant pain; Z95.820 Peripheral vascular angioplasty status with implants and grafts
CPT/HCPCS: 93926

== ENCOUNTER → 2018-01-02 | Outpatient (CLI) | payer MEDICARE, OTHER ==
[2018-01-02 09:51] LABS: HEMOGLOBIN 15.1 G/DL (13.3-17.7); MEAN PLATELET VOLUME 9.4 FL (7.4-10.4); RED BLOOD COUNT 4.74 10^6/uL (4.35-5.85); RED CELL DISTRIBUTION WIDTH 13.3 % (10.0-14.5); WHITE BLOOD COUNT 6.4 10^3/uL (4.3-11.0)
[2018-01-02 09:58] LABS: BILIRUBIN,URINE NEGATIVE (NEGATIVE); CLARITY,URINE CLEAR; COLOR,URINE YELLOW; GLUCOSE, URINE (UA) NEGATIVE (NEGATIVE); KETONES,URINE NEGATIVE (NEGATIVE); LEUKOCYTE ESTERASE ,URINE 1+ (NEGATIVE); NITRITE,URINE NEGATIVE (NEGATIVE); PH,URINE 5 (5-9); PROTEIN,URINE 1+ (NEGATIVE); UROBILINOGEN,URINE NORMAL (NORMAL)
[2018-01-02 10:10] LABS: ALBUMIN 4.3 GM/DL (3.2-4.5); CALCIUM 9.5 MG/DL (8.5-10.1); CREATININE SERUM 2.35 MG/DL (0.60-1.30); PHOSPHORUS 3.5 MG/DL (2.3-4.7); POTASSIUM 4.7 MMOL/L (3.6-5.0)
[2018-01-02 10:19] LABS: RBC,URINE RARE /HPF
[2018-01-02 10:20] LABS: BACTERIA,URINE NEGATIVE /HPF; SQUAMOUS EPITHELIAL CELL,UR 0-2 /HPF; WBC,URINE 0-2 /HPF
== END ==
LOC: LAB 09:23
PROVIDERS: ATTEND Internal Medicine Nephrology
DX: I12.9 Hypertensive chronic kidney disease with stage 1 through stage 4 chronic kidney disease, or unspecified chronic kidney disease (principal); N18.4 Chronic kidney disease, stage 4 (severe); I71.4 Abdominal aortic aneurysm, without rupture; E87.2 Acidosis
CPT/HCPCS: 36415; 80069; 81000; 82306; 82570; 82728; 83540; 83970; 84156; 85027; 87088

== ENCOUNTER → 2018-09-18 | Outpatient (CLI) | payer MEDICARE, OTHER ==
[~2018-09-18] MED LIST changes: +ALBU18HF2 INH; +APIX2.5T PO; +AZIT250T12 PO; +CALC0.253 PO; +CHOL10007 PO; +CLOP75TA28 PO; +CODE118S4 PO; +FERR-84 PO; +MEMA10TA22 PO; +METO-333 PO; +SODI650T PO; +TAMS0.4C98 PO
[2018-09-18 16:41] LABS: BASOPHILS % (AUTO) 1 % (0-10); EOSINOPHILS % (AUTO) 0 % (0-10); HEMATOCRIT 44 % (40-54); HEMOGLOBIN 14.8 G/DL (13.3-17.7); LYMPHOCYTES # (AUTO) 0.5 X 10^3 (1.0-4.0); LYMPHOCYTES % (AUTO) 6 % (12-44); MEAN CORPUSCULAR HEMOGLOBIN 31 PG (25-34); MEAN CORPUSCULAR HGB CONC 34 G/DL (32-36); MEAN CORPUSCULAR VOLUME 91 FL (80-99); MEAN PLATELET VOLUME 9.7 FL (7.4-10.4); MONOCYTES # (AUTO) 0.6 X 10^3 (0.0-1.0); MONOCYTES % (AUTO) 7 % (0-12); NEUTROPHILS # (AUTO) 7.7 X 10^3 (1.8-7.8); NEUTROPHILS % (AUTO) 86 % (42-75); PLATELET COUNT 147 10^3/uL (130-400); RED CELL DISTRIBUTION WIDTH 13.8 % (10.0-14.5); WHITE BLOOD COUNT 8.9 10^3/uL (4.3-11.0)
[2018-09-18 16:52] LABS: CALCIUM 9.3 MG/DL (8.5-10.1); CREATININE SERUM 2.34 MG/DL (0.60-1.30); POTASSIUM 4.3 MMOL/L (3.6-5.0)
[2018-09-18 17:02] LABS: BAND NEUTROPHILS 5 %; BASOPHILS % (MANUAL) 1 %; EOSINOPHILS % (MANUAL) 0 %; LYMPHOCYTES % (MANUAL) 7 %; MONOCYTES % (MANUAL) 6 %; NEUTROPHILS % (MANUAL) 81 %; RBC MORPH NORMAL
--- NOTE | 2018-09-18 17:42 | Diagnostic Imaging Report ---
INDICATION: Cough and fever. PA and lateral views of the chest are obtained with comparison made to study of 07/28/2016. FINDINGS: There is air trapping, bilaterally. There are prominent interstitial markings throughout the lungs. There is no pneumothorax or consolidation. No significant pleural fluid is seen. IMPRESSION: Findings are suggestive of COPD without acute abnormality identified. Dictated by: Dictated on workstation # [id number]
== END ==
LOC: LAB 16:08
PROVIDERS: ATTEND Family Medicine
DX: J98.8 Other specified respiratory disorders (principal); R50.9 Fever, unspecified; R05 Cough; N28.9 Disorder of kidney and ureter, unspecified
CPT/HCPCS: 36415; 71046; 80048; 85007; 85027

== ENCOUNTER 2018-09-19 14:53 | Inpatient (IN) | payer MEDICARE, OTHER ==
[~2018-09-19] VITALS: Ht 175.3 cm; Wt 68.5 kg
[~2018-09-19 14:53] MED LIST changes: -ALBU18HF2 INH; -APIX2.5T PO; -AZIT250T12 PO; -CALC0.253 PO; -CHOL10007 PO; -CLOP75TA28 PO; -CODE118S4 PO; -FERR-84 PO; -MEMA10TA22 PO; -METO-333 PO; -SODI650T PO; -TAMS0.4C98 PO
[2018-09-19] MEDS: NS IV 1000 ML 1,000 ML IV SCH (15:30)
--- NOTE | 2018-09-19 15:33 | NUR ---
ERIC HOOVER admitted to room 404-1, with an admitting diagnosis of SHORTNESS OF BREATH, on 09/19/18 from via W/C, accompanied by . ERIC HOOVER introduced to surroundings, call light, bed controls, phone, TV, temperature control, lights, meal times, smoking policy, visitor policy, side rail policy, bathrooms and showers. Patient Rights given to patient in the handbook. ERIC HOOVER verbalizes understanding that [facility] is not responsible for the loss or damage to any personal effects or valuables that are kept in the patients possession during their hospitalization.
[2018-09-19 15:43] VITALS: BP 163/86
[2018-09-19] MEDS ORDERED: NS IV 500 ML 500 ML IV NR (16:00)
[2018-09-19] MEDS ORDERED: NS IV 1000 ML 1,000 ML IV SCH (16:00)
[2018-09-19] MEDS ORDERED: cefTRIAXone 1,000 MG/SWFI 10 ML IV PUSH IV SCH ×2 (16:00)
[2018-09-19] MEDS ORDERED: ACETAMINOPHEN 500 MG TAB (TYLENOL) PO PRN (16:00)
--- NOTE | 2018-09-19 16:15 | Pulmonary Consultation ---
History of Present Illness History of Present Illness Date of Consultation 09/19/18 16:08 Time Seen by Provider: 08:08 Date of Admission History of Present Illness 83yo with hx of dementia directly admitted from Dr. Manriquez's office secondary to worsening SOB and productive cough. He has had decreased appetite and worsening weakness over the last 3 days. I am consulted for pulmonary management. Allergies and Home Medications Allergies Coded Allergies: bacitracin (Unverified Allergy, Unknown, 05/16/06) gramicidin D (Unverified Allergy, Unknown, 05/16/06) iodine (Unverified Allergy, Unknown, 05/16/06) neomycin (Unverified Allergy, Unknown, 05/16/06) polymyxin B (Unverified Allergy, Unknown, 05/16/06) povidone-iodine (Unverified Allergy, Unknown, 05/16/06) soap (Unverified Allergy, Unknown, 05/16/06) Home Medications Enoxaparin Sodium 40 Mg/0.4 Ml Disp.syrin, 1 EACH SQ DAILY, (Reported) Hctz/Lisinopril 1 Each Tablet, 1 EACH PO DAILY, (Reported) Loratadine 10 Mg Tablet, 10 MG PO DAILY, (Reported) Triamcinolone Acet 15 Gm Tube, 0 TOP TID, (Reported) APPLY SPRARINGLY TO AFFECTED AREA(S) Past Lurmstu-Fzktig-Tjbmox Hx Patient Social History Recent Foreign Travel: No Contact w/Someone Who Travel: No Recent Hopitalizations: No Past Medical History Reproductive Disorders: No Review of Systems Time Seen by Provider: 08:06 Constitutional: Fever, Chills, Sweats, Weakness, Malaise, Other Eyes: No: Pain, Vision change, Conjunctivae inflammation, Eyelid inflammation, Other, Redness ENT: Nose congestion; No: Ear pain, Ear discharge, Nose pain, Nose discharge, Mouth pain, Mouth swelling, Throat pain, Throat swelling, Other Respiratory: Cough, Dry, Shortness of breath, SOB with excertion, Wheezing, Sputum; No: Hemoptysis, Pleuritic Pain, Wheezing, Other Cardiovascular: No: Chest Pain, Palpitations, Orthopnea, Paroxysmal Noc. Dyspnea, Edema, Lt Headedness, Other Gastrointestinal: Nausea, Vomiting Genitourinary: No Dysuria, No Frequency, No Incontinence, No Hematuria, No Retention, No Other Neurological: Weakness, Confusion Sepsis Event Evaluation Height, Weight, BMI Height: 5'7" Weight: 160lbs. oz. 72.430838bw; BMI Method:Estimated Exam Exam Vital Signs Date Time Temp Pulse Resp B/P (MAP) Pulse Ox O2 Delivery O2 Flow Rate FiO2 09/19/18 15:43 101.9 99 20 163/86 (111) 91 Room Air Height & Weight Height: 5'7" Weight: 160lbs. oz. 72.653563tz; BMI Method:Estimated General Appearance: Anxious, Chronically ill, Mild Distress, Thin HEENT: PERRL/EOMI, Normal ENT Inspection, Pharynx Normal Neck: Full Range of Motion, Normal Inspection, Non Tender, Supple Respiratory: No Accessory Muscle Use, No Respiratory Distress, Crackles, Decreased Breath Sounds Cardiovascular: No Edema, No Gallop Capillary Refill: Less Than 3 Seconds Gastrointestinal: normal bowel sounds, non tender, soft Extremity: Normal Capillary Refill, No Pedal Edema Neurologic/Psychiatric: Alert, Oriented x3 Skin: Normal Color Lymphatic: No Adenopathy Assessment/Plan Assessment/Plan COPDAE -Duoneb Q4 -Oxygen -Start Solumedrol Q 6 40mg RLL PNA with sepsis -Change Rocephin to Zosyn -Savage culture Metabolic lactic acidosis -Improving -IVF CRF -IVF and monitor AYE CHRISTINA DO Sep 19, 2018 16:15
--- NOTE | 2018-09-19 16:18 | ST Dysphagia Evaluation ---
Speech Evaluation-General Medical Diagnosis COPD, Dehydration Onset Date: Sep 19, 2018 Therapy Diagnosis Therapy Diagnosis: Oropharyngeal Dysphagia Precautions Precautions: Aspiration Referral Referring Physician: Dr. Manriquez Medical History Pertinent Medical History: COPD, Dementia Reviewed History: Yes Social History Current Living Status: Spouse Speech PLF/Current-Dysphagia Prior Level of Function The patient lives at home with his who states he has moderate dementia. She has to assist him with most of his daily needs. Subjective The patient was pleasant and cooperative with the Bedside Dysphagia Evaluation Cognitive Status Patient Orientation: Person, Confused Oral Motor Skills Denture Type: Full- Upper & Lower Current Food Consistancy: Mechanical Soft, Pureed, Thin Liquids Ability to Follow Directions: Fair Patient has moderate dementia. Oral Expression Ability: Moderate Impairment Voice Voice Phonatory-Based Quality: Hoarse Voice Pitch: Mildly Low Voice Loudness: Mildly Soft/Quiet Face Facial Symmetry: Symmetrical Oral-Facial Assessment Oral-Facial Dentition: Normal Labial Seal Description: Normal Smile: Normal Puff Cheeks: Reduced Strength Lingual Protrusion: Normal Lingual ROM: Normal Lingual Strength: Normal Volitional Dry Swallow: Yes Voluntary Cough: Yes Can Clear Throat Volitionally: Yes Productive Cough: Yes Productive Throat Clear: Yes Dysphagia Evaluation Consistencies Presented: [place] Thick Liquid, Pureed Delayed swallow onset for all consistencies. Oral Phase: Reduced Oral Transit Patient has decreased oral function for intake. Pharyngeal Phase: Decreased A/P Bolus Transit Patient has decreased pharyngeal phase function for oral intake. Funct. Velo/Pharyngeal Symptom: Clears Throat, Cough After Swallow Dietary Recommendations: NPO Liquid Recommendations: NPO The patient is being scheduled for an MBS. Dysphagia Evaluation Summary The patient is a pleasant, however confused 83 year old man who was a direct admit to the hospital by Dr. Manriquez. The patient completed the BDE with presentations of honey consistency liquids via 1/2 tsp. x2 and 1/2 tsp of puree with delayed swallow A-P transfer. The patient is referred for an MBS to be completed on 09/20/2018. The patient will remain NPO until that time. Barriers to Learning Moderate dementia. Speech Short Term Goals Short Term Goals Short Term Goals 1) The patient will tolerate the least restrictive diet level as MBS recommendations are completed with 80% accuracy given minimal verbal cues.\ 2) The patient will follow verbal directions for safe oral intake at 80% or greater with all oral intake. Speech Skilled Nursing Goals Skilled Nursing Goals The patient will maintain adequate nutrition/hydration via safe effective swallow. Speech-Plan Patient/Family Goals Patient/Family Goals: The patient plans on returning home with his upon hospital discharge. Treatment Plan Speech Therapy Treatment Plan: Continue Plan of Care The patient will complete an MBS on 09/20/18. Treatment Duration: Sep 19, 2018 Frequency: 5 times per week Estimated Hrs Per Day: .25 hour per day Rehab Potential: Fair Barriers to Learning: Moderate dementia Pt/Family Agrees to Plan: Yes Safety Risks/Education Teaching Recipient: Patient, Significant Other Teaching Methods: Discussion Response to Teaching: Verbalize Understanding Education Topics Provided: Safety of oral intake. Time Speech Therapy Time In: 15:35 Speech Therapy Time Out: 15:50 Total Billed Time: 15 Billed Treatment Time 1, CHRISTY Ross Sep 19, 2018 16:18
[2018-09-19] MEDS ORDERED: PIPERACILLIN/TAZOBACTAM (BULK) 4.5 GM in NS (IVPB) 100 ML IV NR (16:19)
--- NOTE | 2018-09-19 16:19 | Diagnostic Imaging Report ---
INDICATION: Increased shortness of air. COMPARISON: 09/18/2018. FINDINGS: Frontal and lateral radiographic views of the chest were obtained and show increased alveolar airspace disease in the right base partially obscuring the right hemidiaphragm. The left lung is relatively clear. No large effusion or pneumothorax is seen on either side. There is background emphysematous disease. The cardiac silhouette and pulmonary vasculature are within normal limits. The bony structures show no gross acute abnormalities. IMPRESSION: 1. Interval development of right basilar atelectasis and/or infiltrate. Followup is recommended. 2. Background COPD changes. Dictated by: Dictated on workstation # [id number]
[2018-09-19 16:45] LABS: BASOPHILS % (AUTO) 0 % (0-10); EOSINOPHILS % (AUTO) 0 % (0-10); HEMATOCRIT 45 % (40-54); HEMOGLOBIN 15.2 G/DL (13.3-17.7); LYMPHOCYTES # (AUTO) 0.9 X 10^3 (1.0-4.0); LYMPHOCYTES % (AUTO) 6 % (12-44); MEAN CORPUSCULAR HEMOGLOBIN 31 PG (25-34); MEAN CORPUSCULAR HGB CONC 34 G/DL (32-36); MEAN CORPUSCULAR VOLUME 93 FL (80-99); MEAN PLATELET VOLUME 9.5 FL (7.4-10.4); MONOCYTES # (AUTO) 1.3 X 10^3 (0.0-1.0); MONOCYTES % (AUTO) 8 % (0-12); NEUTROPHILS # (AUTO) 13.7 X 10^3 (1.8-7.8); NEUTROPHILS % (AUTO) 86 % (42-75); PLATELET COUNT 125 10^3/uL (130-400); RED CELL DISTRIBUTION WIDTH 14.4 % (10.0-14.5); WHITE BLOOD COUNT 15.8 10^3/uL (4.3-11.0)
[2018-09-19 16:59] VITALS: BP 163/86
[2018-09-19 17:08] LABS: INR 1.6 (0.8-1.4); PROTHROMBIN TIME PATIENT 19.5 SEC (12.2-14.7)
[2018-09-19 17:15] LABS: ALANINE AMINOTRANSFERASE 14 U/L (0-55); ALBUMIN 4.6 GM/DL (3.2-4.5); ALKALINE PHOSPHATASE 70 U/L (40-136); BILIRUBIN,TOTAL 1.4 MG/DL (0.1-1.0); BUN/CREATININE RATIO 13; CALCIUM 9.6 MG/DL (8.5-10.1); CARBON DIOXIDE 20 MMOL/L (21-32); CHLORIDE 102 MMOL/L (98-107); CREATININE SERUM 2.53 MG/DL (0.60-1.30); GFR ESTIMATED 24; GLUCOSE 112 MG/DL (70-105); SODIUM 137 MMOL/L (135-145); TOTAL PROTEIN 7.9 GM/DL (6.4-8.2)
[2018-09-19 18:29] LABS: BAND NEUTROPHILS 19 %; EOSINOPHILS % (MANUAL) 0 %; LYMPHOCYTES % (MANUAL) 11 %; MONOCYTES % (MANUAL) 6 %; NEUTROPHILS % (MANUAL) 64 %; RBC MORPH NORMAL
--- NOTE | 2018-09-19 18:44 | History & Physicial ---
History of Present Illness History of Present Illness Reason for visit/HPI Patient was brought in by today. Patient lives in [place]. Patient not eating for the last 3 days. Patient has history of renal insufficiency. Patient was week. Patient had difficulty in walking. Patient has a history of dementia. Past history patient seen the day before with a temperature of 102 area Patient having congestion in his chest. Chest x-ray taken did not show pneumonia. Patient's last night went to [facility]. Patient today looked worse and directly admitted to hospital. Chest x-ray shows pneumonia today. White blood cell count elevated. GFR worse. Lactic acid over 2. Previous surgery, aneurysm on aorta. Aneurysm back of knee. Fracture right hip. Cataract both eyes. Patient has been dizzy. Family history denies asthma TB diabetes heart disease lung disease cancer. History from since patient unable to give an accurate history Date of Admission Sep 19, 2018 at 15:20 Time Seen by a Provider: 18:39 I consulted on this patient on 09/19/18 18:31 Attending Physician Mushtaq Boyer DO Admitting Physician Mushtaq Boyer DO Consult Allergies and Home Medications Allergies Coded Allergies: bacitracin (Unverified Allergy, Unknown, 05/16/06) gramicidin D (Unverified Allergy, Unknown, 05/16/06) iodine (Unverified Allergy, Unknown, 05/16/06) neomycin (Unverified Allergy, Unknown, 05/16/06) polymyxin B (Unverified Allergy, Unknown, 05/16/06) povidone-iodine (Unverified Allergy, Unknown, 05/16/06) soap (Unverified Allergy, Unknown, 05/16/06) Home Medications Enoxaparin Sodium 40 Mg/0.4 Ml Disp.syrin, 1 EACH SQ DAILY, (Reported) Hctz/Lisinopril 1 Each Tablet, 1 EACH PO DAILY, (Reported) Loratadine 10 Mg Tablet, 10 MG PO DAILY, (Reported) Triamcinolone Acet 15 Gm Tube, 0 TOP TID, (Reported) APPLY SPRARINGLY TO AFFECTED AREA(S) Patient Home Medication List Home Medication List Reviewed: Yes Past Cznphin-Qxiqia-Nbgbgl Hx Patient Social History Marrital Status: Employed/Student: retired Alcohol Use: Occasionally Uses Alcohol Beverage of Choice: [place] Recreational Drug Use: No Physical Abuse Screen: No Sexual Abuse: No Recent Foreign Travel: No Contact w/other who traveled: No Recent Hopitalizations: No Recent Infectious Disease Expo: No Seasonal Allergies Seasonal Allergies: Yes Surgeries Yes (5 YRS AGO, 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, ANEURYSM REPAIR) Respiratory Yes Currently Using CPAP: No Currently Using BIPAP: No Cardiovascular Yes (PAD, AAA) Reproductive System Hx Reproductive Disorders: No Genitourinary Yes (STG 4 KIDNEY DISEASE) Prostate Problems Gastrointestinal Yes Gastroesophageal Reflux Musculoskeletal Fractures Endocrine History of Endocrine Disorders: No HEENT History of HEENT Disorders: Yes HEENT Disorders: Cataract, Dysphagia Hearing Impairment: Hard of Hearing Cancer No Psychosocial History of Psychiatric Problem: No Blood Transfusions History of Blood Disorders: No Review of Systems Constitutional: malaise, weakness EENTM: no symptoms reported Respiratory: cough, short of breath, wheezing, other (Congestion) Gastrointestinal: no symptoms reported, other (Not eating the last 3 days) Genitourinary: no symptoms reported Physical Exam Vital Signs Vital Signs - First Documented 09/19/18 15:43 Temp 101.9 Pulse 99 Resp 20 B/P (MAP) 163/86 (111) Pulse Ox 91 O2 Delivery Room Air Capillary Refill : Height, Weight, BMI Height: 5'9.00" Weight: 151lbs. 0.0oz. 68.381090gz; 22.3 BMI Method:Estimated General Appearance: No Apparent Distress, Thin Eyes: Bilateral Eye Normal Inspection HEENT: Normal ENT Inspection Neck: Full Range of Motion, Normal Inspection Respiratory: No Accessory Muscle Use, No Respiratory Distress, Decreased Breath Sounds, Wheezing, Other (Congestion with coughing) Cardiovascular: Regular Rate, Rhythm, No Murmur Gastrointestinal: Non Tender, Soft Assessment/Plan Assessment and Plan Pneumonia. Acute renal failure. Dementia. History of renal insufficiency. Peripheral artery disease. Hypertension. Admission Diagnosis Admission Status: Inpatient Order (span 2 midnights) Reason for Inpatient Admission: Pneumonia. Weakness. Renal insufficiency acute. Coughing and congested. Dementia Clinical Quality Measures DVT/VTE Risk/Contraindication: Risk Factor Score Per Nursin RFS Level Per Nursing on Admit: 4+=Very High MUSHTAQ BOYER DO Sep 19, 2018 18:44
[2018-09-19] MEDS: RT-ALBUTEROL/IPRATROPIUM 3 ML (DUONEB) VIAL INH SCH ×2 (19:32→23:23)
[2018-09-19] MEDS: methylPREDNISolone 40 MG/ML (Solu-MEDROL) VIAL IV SCH (19:41)
[2018-09-19 20:06] VITALS: BP 170/79
[2018-09-19] MEDS ORDERED: PIPERACILLIN/TAZOBACTAM (BULK) 4.5 GM in NS (IVPB) 100 ML IV SCH (22:00)
[2018-09-20] VITALS: BP 111/67
[2018-09-20] MEDS: methylPREDNISolone 40 MG/ML (Solu-MEDROL) VIAL IV SCH ×4 (01:14→18:17)
[2018-09-20] MEDS: PIPERACILLIN/TAZOBACTAM (BULK) 4.5 GM in NS (IVPB) 100 ML IV SCH ×3 (01:15→18:17)
[2018-09-20] MEDS: RT-ALBUTEROL/IPRATROPIUM 3 ML (DUONEB) VIAL INH SCH ×6 (02:28→23:10)
[2018-09-20 04:44] VITALS: BP 142/81
[2018-09-20] MEDS: NS IV 1000 ML 1,000 ML IV SCH ×2 (05:31→20:16)
[2018-09-20 05:45] LABS: BASOPHILS % (AUTO) 0 % (0-10); EOSINOPHILS % (AUTO) 0 % (0-10); HEMATOCRIT 42 % (40-54); HEMOGLOBIN 13.8 G/DL (13.3-17.7); LYMPHOCYTES # (AUTO) 0.5 X 10^3 (1.0-4.0); LYMPHOCYTES % (AUTO) 6 % (12-44); MEAN CORPUSCULAR HEMOGLOBIN 30 PG (25-34); MEAN CORPUSCULAR HGB CONC 33 G/DL (32-36); MEAN CORPUSCULAR VOLUME 93 FL (80-99); MEAN PLATELET VOLUME 9.9 FL (7.4-10.4); MONOCYTES # (AUTO) 0.4 X 10^3 (0.0-1.0); MONOCYTES % (AUTO) 4 % (0-12); NEUTROPHILS # (AUTO) 8.9 X 10^3 (1.8-7.8); NEUTROPHILS % (AUTO) 90 % (42-75); PLATELET COUNT 110 10^3/uL (130-400); RED CELL DISTRIBUTION WIDTH 14.4 % (10.0-14.5); WHITE BLOOD COUNT 9.8 10^3/uL (4.3-11.0)
[2018-09-20 06:04] LABS: ALBUMIN 3.6 GM/DL (3.2-4.5); CALCIUM 8.7 MG/DL (8.5-10.1); CREATININE SERUM 2.36 MG/DL (0.60-1.30); POTASSIUM 4.2 MMOL/L (3.6-5.0); TOTAL PROTEIN 6.3 GM/DL (6.4-8.2)
--- NOTE | 2018-09-20 07:50 | Progress Note (SOAP) ---
Subjective Time Seen by a Provider: 07:47 Subjective/Events-last exam Patient doing better today. Patient afebrile. White blood cell count within normal limits. GFR from 24 now 26. Patient does not know where he is now. Patient more alert and awake. Lactic acid from over 2 now 1.2 Focused Exam Lactate Level 09/19/18 16:30: Lactic Acid Level 2.05*H 09/19/18 18:38: Lactic Acid Level 1.20 Objective Exam Vital Signs Date Time Temp Pulse Resp B/P (MAP) Pulse Ox O2 Delivery O2 Flow Rate FiO2 09/20/18 06:36 92 Nasal Cannula 2.00 09/20/18 04:44 98.0 63 18 142/81 (101) 94 Nasal Cannula 2.00 09/20/18 02:28 88 Nasal Cannula 2.00 09/20/18 00:00 100.3 96 18 111/67 (82) 92 Nasal Cannula 2.00 09/19/18 23:23 93 Nasal Cannula 2.00 09/19/18 23:05 100.0 09/19/18 22:35 102.0 09/19/18 20:06 102.8 104 20 170/79 (109) 91 Room Air 09/19/18 20:00 91 Room Air 09/19/18 19:46 95 Room Air 09/19/18 19:32 88 Room Air 09/19/18 16:59 101.9 99 20 163/86 91 Room Air 09/19/18 15:43 101.9 99 20 163/86 (111) 91 Room Air I & O 09/20/18 07:00 Intake Total 1120 ml Balance 1120 ml Capillary Refill : General Appearance: No Apparent Distress, WD/WN, Thin Neck: Full Range of Motion, Normal Inspection Respiratory: No Accessory Muscle Use, No Respiratory Distress, Decreased Breath Sounds, Other (Congestion and chest is less) Cardiovascular: Regular Rate, Rhythm, No Murmur Gastrointestinal: non tender, soft Results Lab Laboratory Tests 09/19/18 16:30 09/20/18 05:06 Laboratory Tests 09/19/18 16:30: White Blood Count 15.8H, Red Blood Count 4.91, Hemoglobin 15.2, Hematocrit 45, Mean Corpuscular Volume 93, Mean Corpuscular Hemoglobin 31, Mean Corpuscular Hemoglobin Concent 34, Red Cell Distribution Width 14.4, Platelet Count 125L, Mean Platelet Volume 9.5, Neutrophils (%) (Auto) 86H, Lymphocytes (%) (Auto) 6L, Monocytes (%) (Auto) 8, Eosinophils (%) (Auto) 0, Basophils (%) (Auto) 0, Neutrophils # (Auto) 13.7H, Lymphocytes # (Auto) 0.9L, Monocytes # (Auto) 1.3H, Eosinophils # (Auto) 0.0, Basophils # (Auto) 0.0, Neutrophils % (Manual) 64, Lymphocytes % (Manual) 11, Monocytes % (Manual) 6, Eosinophils % (Manual) 0, Band Neutrophils 19, Blood Morphology Comment NORMAL, Prothrombin Time 19.5H, INR Comment 1.6H, Activated Partial Thromboplast Time 37H, Sodium Level 137, Potassium Level 4.0, Chloride Level 102, Carbon Dioxide Level 20L, Anion Gap 15H , Blood Urea Nitrogen 32H, Creatinine 2.53H, Estimat Glomerular Filtration Rate 24, BUN/Creatinine Ratio 13, Glucose Level 112H, Lactic Acid Level 2.05*H, Calcium Level 9.6, Corrected Calcium , Total Bilirubin 1.4H, Aspartate Amino Transf (AST/SGOT) 21, Alanine Aminotransferase (ALT/SGPT) 14, Alkaline Phosphatase 70, Total Protein 7.9, Albumin 4.6H, Thyroid Stimulating Hormone (TSH) 1.62 09/19/18 18:38: Lactic Acid Level 1.20 09/20/18 05:06: White Blood Count 9.8, Red Blood Count 4.57, Hemoglobin 13.8, Hematocrit 42, Mean Corpuscular Volume 93, Mean Corpuscular Hemoglobin 30, Mean Corpuscular Hemoglobin Concent 33, Red Cell Distribution Width 14.4, Platelet Count 110L, Mean Platelet Volume 9.9, Neutrophils (%) (Auto) 90H, Lymphocytes (%) (Auto) 6L, Monocytes (%) (Auto) 4, Eosinophils (%) (Auto) 0, Basophils (%) (Auto) 0, Neutrophils # (Auto) 8.9H, Lymphocytes # (Auto) 0.5L, Monocytes # (Auto) 0.4, Eosinophils # (Auto) 0.0, Basophils # (Auto) 0.0, Sodium Level 140, Potassium Level 4.2, Chloride Level 107, Carbon Dioxide Level 19L, Anion Gap 14, Blood Urea Nitrogen 33H, Creatinine 2.36H, Estimat Glomerular Filtration Rate 26, BUN/Creatinine Ratio 14, Glucose Level 163H, Calcium Level 8.7, Corrected Calcium 9.0, Total Bilirubin 1.0, Aspartate Amino Transf (AST/SGOT) 25, Alanine Aminotransferase (ALT/SGPT) 13, Alkaline Phosphatase 49, Total Protein 6.3L, Albumin 3.6 Assessment/Plan Assessment/Plan Assess & Plan/Chief Complaint Pneumonia. Febrile. Acute and chronic renal insufficiency. Dementia. Peripheral artery disease Clinical Quality Measures Admission Status Admission Dx Pneumonia. Acute renal failure. Dementia. History of renal insufficiency. Peripheral artery disease. Hypertension. DVT/VTE Risk/Contraindication: Risk Factor Score Per Nursin RFS Level Per Nursing on Admit: 4+=Very High Contraindications-Pharm: Other *list below* MIKAL BOYER DO Sep 20, 2018 07:50
[2018-09-20 08:00] VITALS: BP 138/75
--- NOTE | 2018-09-20 08:04 | Pulmonary Progress Note ---
Subjective Time Seen by a Provider: 08:04 Subjective/Events-last exam Pt states he feels better. Sepsis Event Evaluation Height, Weight, BMI Height: 5'9.00" Weight: 151lbs. 0.0oz. 68.838587ik; 22.3 BMI Method:Estimated Focused Exam Lactate Level 09/19/18 16:30: Lactic Acid Level 2.05*H 09/19/18 18:38: Lactic Acid Level 1.20 Exam Exam Vital Signs Date Time Temp Pulse Resp B/P (MAP) Pulse Ox O2 Delivery O2 Flow Rate FiO2 09/20/18 06:36 92 Nasal Cannula 2.00 09/20/18 04:44 98.0 63 18 142/81 (101) 94 Nasal Cannula 2.00 09/20/18 02:28 88 Nasal Cannula 2.00 09/20/18 00:00 100.3 96 18 111/67 (82) 92 Nasal Cannula 2.00 09/19/18 23:23 93 Nasal Cannula 2.00 09/19/18 23:05 100.0 09/19/18 22:35 102.0 09/19/18 20:06 102.8 104 20 170/79 (109) 91 Room Air 09/19/18 20:00 91 Room Air 09/19/18 19:46 95 Room Air 09/19/18 19:32 88 Room Air 09/19/18 16:59 101.9 99 20 163/86 91 Room Air 09/19/18 15:43 101.9 99 20 163/86 (111) 91 Room Air I & O 09/20/18 07:00 Intake Total 1120 ml Balance 1120 ml Height & Weight Height: 5'9.00" Weight: 151lbs. 0.0oz. 68.293494li; 22.3 BMI Method:Estimated General Appearance: No Apparent Distress, WD/WN, Thin HEENT: Normal ENT Inspection Neck: Full Range of Motion, Normal Inspection Respiratory: No Accessory Muscle Use, No Respiratory Distress, Decreased Breath Sounds, Other (Congestion and chest is less) Cardiovascular: Regular Rate, Rhythm, No Murmur Gastrointestinal: non tender, soft Results Lab Laboratory Tests 09/19/18 16:30 09/20/18 05:06 Assessment/Plan Assessment/Plan COPDAE -Duoneb Q4 -Oxygen -Start Solumedrol Q 6 40mg RLL PNA with sepsis (on admission) - improving -Continue Zosyn -Savage culture Metabolic acidosis -Monitor CRF -IVF and monitor AYE CHRISTINA DO Sep 20, 2018 08:04
[2018-09-20] MEDS: LORATADINE (CLARITIN) 10 MG TAB PO SCH (08:27)
[2018-09-20] MEDS: ENOXAPARIN 30 MG/0.3 ML (LOVENOX) SYR SC SCH (08:27)
[2018-09-20] MEDS: lisINopril 20 MG (PRINIVIL) TABLET PO SCH (08:27)
[2018-09-20] MEDS ORDERED: HYDROCHLOROTHIAZIDE 12.5 MG (HCTZ) CAP PO SCH (09:00)
[2018-09-20 09:49] LABS: BILIRUBIN,URINE NEGATIVE (NEGATIVE); CLARITY,URINE CLEAR; COLOR,URINE YELLOW; GLUCOSE, URINE (UA) NEGATIVE (NEGATIVE); KETONES,URINE NEGATIVE (NEGATIVE); LEUKOCYTE ESTERASE ,URINE NEGATIVE (NEGATIVE); NITRITE,URINE NEGATIVE (NEGATIVE); PH,URINE 5 (5-9); PROTEIN,URINE 3+ (NEGATIVE); UROBILINOGEN,URINE NORMAL (NORMAL)
[2018-09-20 09:56] LABS: BACTERIA,URINE TRACE /HPF; SQUAMOUS EPITHELIAL CELL,UR 0-2 /HPF; URIC ACID CRYSTALS,URINE MODERATE /LPF
[2018-09-20] MEDS ORDERED: CLOP75TA28 PO (11:30)
[2018-09-20] MEDS ORDERED: MEMA10TA22 PO (11:30)
[2018-09-20] MEDS ORDERED: AZIT250T12 PO (11:30)
[2018-09-20] MEDS ORDERED: CODE118S4 PO (11:30)
[2018-09-20] MEDS ORDERED: TAMS0.4C98 PO (11:30)
[2018-09-20] MEDS ORDERED: METO-333 PO (11:30)
[2018-09-20] MEDS ORDERED: CALC0.253 PO (11:30)
[2018-09-20] MEDS ORDERED: APIX2.5T PO (11:30)
[2018-09-20] MEDS ORDERED: ALBU18HF2 INH (11:40)
[2018-09-20] MEDS ORDERED: LORA10TA7 PO (11:40)
[2018-09-20] MEDS ORDERED: CHOL10007 PO (11:40)
[2018-09-20] MEDS ORDERED: SODI650T PO (11:43)
[2018-09-20] MEDS ORDERED: FERR-84 PO (11:45)
--- NOTE | 2018-09-20 11:45 | NUR ---
SPOKE WITH THE PATIENTS REGARDING MEDICATIONS, WE WENT OVER THE EXT MED HX. IN ADDITION TO WHAT IS SHOWN ON THE EXT MED HX [facility] FILLED SODIUM BICARB 10GRAIN 1/2 TAB DAILY. OTC MEDS: IRON 325MG EVERY OTHER DAY VITAMIN D 1000 UNITS DAILY LORATADINE 10MG DAILY Addendum: 09/20/18 at 1147 by ROSARIO BOYD veneer trimmer INFORMED NURSE MATT OF CHANGES MADE TO MED REC, 3 MEDS HAD BEEN CONTINUED FROM THE MED REC BEFORE IT WAS UPDATED THIS VISIT.
[2018-09-20 11:58] VITALS: BP 138/72
--- NOTE | 2018-09-20 15:46 | Diagnostic Imaging Report ---
INDICATION: Trouble swallowing. EXAMINATION: Procedure was performed in conjunction with Speech Pathology. Video fluoroscopy was performed during swallowing of barium in multiple consistencies. Total of 1 minute and 25 seconds of fluoroscopy was utilized. FINDINGS: Patient ingested thin and nectar consistency as well as applesauce, banana, ground meat and cracker consistency. There is normal Epiglottic tilt and laryngeal elevation. No penetration or aspiration was observed. Mild vallecular residue was seen on multiple swallows. IMPRESSION: Mild residue. Study is otherwise unremarkable. Dictated by: Dictated on workstation # [id number]
--- NOTE | 2018-09-20 15:50 | ST Mod Barium Swallow ---
Speech Evaluation-General Medical Diagnosis COPD, Dehydration Onset Date: Sep 19, 2018 Therapy Diagnosis Therapy Diagnosis: Oropharyngeal Dysphagia Precautions Precautions: Aspiration Precautions/Isolations: Fall Prevention, Standard Precautions Referral Referring Physician: Dr. Manriquez Medical History Pertinent Medical History: COPD, Dementia Reviewed History: Yes Social History Current Living Status: Spouse Speech Mod Barium Swallow Prior Level of Function The patient lives at home with his . The patient has moderate dementia per his . She also states he has had difficulty swallowing anything with textures for a while now. Oral Motor Skills Dentition Natural Dentures: Partial Upper Lingual Protrusion: Normal Lingual ROM: Normal Lingual Strength: Normal Velum: Normal Volitional Dry Swallow: Yes Voluntary Cough: Yes Can Clear Throat Volitionally: Yes Textures-Lateral View Lateral View Food Presentation: Thin Liquid via Spoon, [place] Liquid via Spoon, Pureed Solids, Ground Solids, Mechanial Soft Solids, Regular Solids Oral Phase Labial Closure: No Impairment (WFL) Bolus Formation Pooling L/R: No Impairment (WFL) The patient did not exhibit any control with the reg cons (cracker) Mastication Rotary Chew: No Impairment (WFL) A/P Lingual Propulsion: No Impairment (WFL) A/P transfer without control for reg consistency Lingual Movement: No Impairment (WFL) Oral Phase Residue: No Impairment (WFL) Pharyngeal Phase Swallow Response: No Impairment (WFL) Swallow response WFL except for regular cons. Base of Tongue: No Impairment (WFL) Epiglottic Movement: No Impairment (WFL) No movement noted initially with regular cons. Laryngeal Elevation: No Impairment (WFL) Vallecular Residue: Mild Good clearance with subsequent swallow. Pharyngeal Wall Residue: No Impairment (WFL) Piriform Sinus Residue: No Impairment (WFL) Laryngeal Penetration: None Aspiration Observations: None Esophageal Phase Peristalsis: WFL A/P Esophageal Propulsion Time: Less Than 5 Seconds Normal Performed-A/P View Not Applicable/Performed Speech Short Term Goals Short Term Goals Short Term Goals 1) The patient will tolerate the least restrictive diet level as MBS recommendations are completed with 80% accuracy given minimal verbal cues.\ 2) The patient will follow verbal directions for safe oral intake at 80% or greater with all oral intake. Speech Alf Goals Underwater Photographer Goals The patient will maintain adequate nutrition/hydration via safe effective swallow. Speech-Plan Patient/Family Goals Patient/Family Goals: The patient plans on returning home with his upon hospital discharge. Treatment Plan Speech Therapy Treatment Plan: Continue Plan of Care The patient will receive skilled ST for dysphagia therapy. Treatment Duration: Sep 22, 2018 Frequency: 5 times per week Estimated Hrs Per Day: .25 hour per day Rehab Potential: Fair Barriers to Learning: Moderate dementia Pt/Family Agrees to Plan: Yes Safety Risks/Education Teaching Recipient: Patient, Significant Other Teaching Methods: Discussion Response to Teaching: Verbalize Understanding Education Topics Provided: Safety strategies for oral intake. Time Speech Therapy Time In: 14:30 Speech Therapy Time Out: 15:00 Total Billed Time: 30 Billed Treatment Time 1, MOD CHRISTY Lombardo Sep 20, 2018 15:50
[2018-09-20 16:44] VITALS: BP 131/73
[2018-09-20 19:32] VITALS: BP 156/84
[2018-09-21] MEDS: methylPREDNISolone 40 MG/ML (Solu-MEDROL) VIAL IV SCH ×4 (00:40→17:19)
[2018-09-21] MEDS: PIPERACILLIN/TAZOBACTAM (BULK) 4.5 GM in NS (IVPB) 100 ML IV SCH ×3 (00:40→17:19)
[2018-09-21] MEDS: RT-ALBUTEROL/IPRATROPIUM 3 ML (DUONEB) VIAL INH SCH ×6 (03:11→23:14)
[2018-09-21 04:00] VITALS: BP 113/54
[2018-09-21 05:15] LABS: BASOPHILS % (AUTO) 0 % (0-10); EOSINOPHILS % (AUTO) 0 % (0-10); HEMATOCRIT 40 % (40-54); HEMOGLOBIN 13.5 G/DL (13.3-17.7); LYMPHOCYTES # (AUTO) 0.5 X 10^3 (1.0-4.0); LYMPHOCYTES % (AUTO) 4 % (12-44); MEAN CORPUSCULAR HEMOGLOBIN 31 PG (25-34); MEAN CORPUSCULAR HGB CONC 34 G/DL (32-36); MEAN CORPUSCULAR VOLUME 92 FL (80-99); MEAN PLATELET VOLUME 10.6 FL (7.4-10.4); MONOCYTES # (AUTO) 0.3 X 10^3 (0.0-1.0); MONOCYTES % (AUTO) 3 % (0-12); NEUTROPHILS # (AUTO) 10.4 X 10^3 (1.8-7.8); NEUTROPHILS % (AUTO) 93 % (42-75); PLATELET COUNT 118 10^3/uL (130-400); RED CELL DISTRIBUTION WIDTH 14.2 % (10.0-14.5); WHITE BLOOD COUNT 11.3 10^3/uL (4.3-11.0)
[2018-09-21 05:32] LABS: ALBUMIN 3.4 GM/DL (3.2-4.5); BILIRUBIN,TOTAL 0.6 MG/DL (0.1-1.0); CREATININE SERUM 2.46 MG/DL (0.60-1.30); POTASSIUM 3.8 MMOL/L (3.6-5.0)
--- NOTE | 2018-09-21 06:56 | Pulmonary Progress Note ---
Subjective Time Seen by a Provider: 06:54 Subjective/Events-last exam No complications noted. Sepsis Event Evaluation Height, Weight, BMI Height: 5'9.00" Weight: 151lbs. 0.0oz. [id number]; 22.3 BMI Method:Estimated Focused Exam Lactate Level 09/19/18 16:30: Lactic Acid Level 2.05*H 09/19/18 18:38: Lactic Acid Level 1.20 Exam Exam Vital Signs Date Time Temp Pulse Resp B/P (MAP) Pulse Ox O2 Delivery O2 Flow Rate FiO2 09/21/18 04:00 97.4 67 20 113/54 (73) 92 Room Air 09/21/18 03:15 90 Room Air 09/20/18 23:22 Room Air 09/20/18 20:00 Room Air 09/20/18 19:32 98.4 55 20 156/84 (108) 91 Room Air 09/20/18 19:29 91 Room Air 09/20/18 16:44 98.0 85 0 131/73 (92) 93 Room Air 09/20/18 11:58 98.6 79 20 138/72 (94) 92 Room Air 09/20/18 10:33 100 Room Air 09/20/18 08:00 91 Room Air 09/20/18 08:00 97.5 69 20 138/75 (96) 94 Nasal Cannula 2.00 I & O 09/21/18 07:00 Intake Total 500 ml Output Total 250 ml Balance 250 ml Height & Weight Height: 5'9.00" Weight: 151lbs. 0.0oz. 68.887958ip; 22.3 BMI Method:Estimated General Appearance: No Apparent Distress, WD/WN, Thin HEENT: Normal ENT Inspection Neck: Full Range of Motion, Normal Inspection Respiratory: No Accessory Muscle Use, No Respiratory Distress, Decreased Breath Sounds, Other (Congestion and chest is less) Cardiovascular: Regular Rate, Rhythm, No Murmur Capillary Refill: Less Than 3 Seconds Gastrointestinal: non tender, soft Extremity: Normal Capillary Refill, No Pedal Edema Neurologic/Psychiatric: Alert, Oriented x3 Skin: Normal Color Lymphatic: No Adenopathy Results Lab Laboratory Tests 09/19/18 16:30 09/20/18 05:06 09/21/18 04:37 Assessment/Plan Assessment/Plan COPDAE -Duoneb Q4 -Oxygen Solumedrol Q 6 40mg RLL PNA with sepsis (on admission) - improving -Continue Zosyn -Savage culture Metabolic acidosis -Monitor -Increase IVF to 125 -Hold HCTZ CRF -IVF and monitor AYE CHRISTINA DO Sep 21, 2018 06:56
--- NOTE | 2018-09-21 07:46 | Progress Note (SOAP) ---
Subjective Time Seen by a Provider: 07:43 Subjective/Events-last exam Patient doing better. Patient more alert. GFR 25. Patient not taking enough fluids yet. Platelet count 118. Patient more alert today. Chest x-ray not done yet. Patient should be able to be discharged tomorrow keeps on improving. Patient has history of renal insufficiency. Lung still has some coarseness to it Focused Exam Lactate Level 09/19/18 16:30: Lactic Acid Level 2.05*H 09/19/18 18:38: Lactic Acid Level 1.20 Objective Exam Vital Signs Date Time Temp Pulse Resp B/P (MAP) Pulse Ox O2 Delivery O2 Flow Rate FiO2 09/21/18 07:24 90 Room Air 09/21/18 04:00 97.4 67 20 113/54 (73) 92 Room Air 09/21/18 03:15 90 Room Air 09/20/18 23:22 Room Air 09/20/18 20:00 Room Air 09/20/18 19:32 98.4 55 20 156/84 (108) 91 Room Air 09/20/18 19:29 91 Room Air 09/20/18 16:44 98.0 85 0 131/73 (92) 93 Room Air 09/20/18 11:58 98.6 79 20 138/72 (94) 92 Room Air 09/20/18 10:33 100 Room Air 09/20/18 08:00 91 Room Air 09/20/18 08:00 97.5 69 20 138/75 (96) 94 Nasal Cannula 2.00 I & O 09/21/18 07:00 Intake Total 500 ml Output Total 250 ml Balance 250 ml Capillary Refill : Less Than 3 Seconds General Appearance: No Apparent Distress, Thin HEENT: Normal ENT Inspection Neck: Full Range of Motion, Normal Inspection Respiratory: No Accessory Muscle Use, No Respiratory Distress, Decreased Breath Sounds, Other (Coarseness with cough) Cardiovascular: Regular Rate, Rhythm Gastrointestinal: non tender, soft Results Lab Laboratory Tests 09/21/18 04:37 Laboratory Tests 09/20/18 08:47: Urine Color YELLOW, Urine Clarity CLEAR, Urine pH 5, Urine Specific [place] 1.020, Urine Protein 3+H, Urine Glucose (UA) NEGATIVE, Urine Ketones NEGATIVE, Urine Nitrite NEGATIVE, Urine Bilirubin NEGATIVE, Urine Urobilinogen NORMAL, Urine Leukocyte Esterase NEGATIVE, Urine RBC (Auto) 5+H, Urine RBC NONE, Urine WBC NONE, Urine Squamous Epithelial Cells 0-2, Urine Crystals PRESENTH, Urine Uric Acid Crystals MODERATEH, Urine Bacteria TRACE, Urine Casts PRESENT, Urine Granular Casts 2-5H, Urine Mucus NEGATIVE, Urine Culture Indicated NO 09/21/18 04:37: White Blood Count 11.3H, Red Blood Count 4.35, Hemoglobin 13.5, Hematocrit 40, Mean Corpuscular Volume 92, Mean Corpuscular Hemoglobin 31, Mean Corpuscular Hemoglobin Concent 34, Red Cell Distribution Width 14.2, Platelet Count 118L, Mean Platelet Volume 10.6H, Neutrophils (%) (Auto) 93H, Lymphocytes (%) (Auto) 4L, Monocytes (%) (Auto) 3, Eosinophils (%) (Auto) 0, Basophils (%) (Auto) 0, Neutrophils # (Auto) 10.4H, Lymphocytes # (Auto) 0.5L, Monocytes # (Auto) 0.3, Eosinophils # (Auto) 0.0, Basophils # (Auto) 0.0, Sodium Level 141, Potassium Level 3.8, Chloride Level 112H, Carbon Dioxide Level 17L, Anion Gap 12, Blood Urea Nitrogen 49H, Creatinine 2.46H, Estimat Glomerular Filtration Rate 25, BUN/Creatinine Ratio 20, Glucose Level 230H, Calcium Level 9.0, Corrected Calcium 9.5, Total Bilirubin 0.6, Aspartate Amino Transf (AST/SGOT) 27, Alanine Aminotransferase (ALT/SGPT) 16, Alkaline Phosphatase 43, Total Protein 6.0L, Albumin 3.4 Assessment/Plan Assessment/Plan Assess & Plan/Chief Complaint Pneumonia. Febrile. Acute and chronic renal insufficiency. Dementia. Peripheral artery disease. . 6 L pneumonia. Not febrile now. Acute on chronic renal insufficiency. Dementia. Peripheral artery disease. Decreased appetite and not taking fluids resolving Clinical Quality Measures Admission Status Admission Dx Pneumonia. Acute renal failure. Dementia. History of renal insufficiency. Peripheral artery disease. Hypertension. DVT/VTE Risk/Contraindication: Risk Factor Score Per Nursin RFS Level Per Nursing on Admit: 4+=Very High Contraindications-Pharm: Other *list below* MIKAL BOYER DO Sep 21, 2018 07:46
[2018-09-21 08:00] VITALS: BP 146/83
[2018-09-21] MEDS: NS IV 1000 ML 1,000 ML IV SCH ×2 (09:00→18:56)
[2018-09-21] MEDS: LORATADINE (CLARITIN) 10 MG TAB PO SCH (09:02)
[2018-09-21] MEDS: lisINopril 20 MG (PRINIVIL) TABLET PO SCH (09:02)
[2018-09-21] MEDS: ENOXAPARIN 30 MG/0.3 ML (LOVENOX) SYR SC SCH (09:02)
[2018-09-21 12:00] VITALS: BP 145/81
--- NOTE | 2018-09-21 13:29 | Diagnostic Imaging Report ---
INDICATION: Respiratory problems. TIME OF EXAM: 11:59 a.m. COMPARISON: Correlation is made with prior study from 09/19/2018. FINDINGS: There is some infiltrate or atelectasis in the left base. Otherwise, the lungs are clear. No effusion or pneumothorax is seen. IMPRESSION: Left basilar infiltrate or atelectasis. Dictated by: Dictated on workstation # [id number]
--- NOTE | 2018-09-21 14:28 | Speech Therapy Daily Note ---
Speech Daily Progress Note Subjective Date Seen by Provider: Sep 21, 2018 Time Seen by Provider: 00:15 The patient states he is doing much better with his swallowing. Objective The patient completed compensatory strategies training with 80% accuracy given minimal verbal cues. His was also taking notes to carry through with strategies at home. Assessment Assessment Current Status: Good Progress Treatment Plan Continue Plan of Care Speech Short Term Goals Short Term Goals Short Term Goals 1) The patient will tolerate the least restrictive diet level as MBS recommendations are completed with 80% accuracy given minimal verbal cues.\ 2) The patient will follow verbal directions for safe oral intake at 80% or greater with all oral intake. Speech Retail Team Leader Goals Retirement Goals The patient will maintain adequate nutrition/hydration via safe effective swallow. Speech-Plan Patient/Family Goals Patient/Family Goals: The patient plans on returning home with his upon hospital discharge. Treatment Plan Speech Therapy Treatment Plan: Continue Plan of Care The patient was encouraged to drink plenty of water with verbal understanding. Treatment Duration: Sep 22, 2018 Frequency: 5 times per week Estimated Hrs Per Day: .25 hour per day Rehab Potential: Fair Barriers to Learning: Moderate dementia Pt/Family Agrees to Plan: Yes Safety Risks/Education Teaching Recipient: Patient, Significant Other Teaching Methods: Demonstration, Discussion Response to Teaching: Verbalize Understanding, Return Demonstration Education Topics Provided: Compensatory strategies for safe oral intake. Time Speech Therapy Time In: 13:00 Speech Therapy Time Out: 13:15 Total Billed Time: 15 Billed Treatment Time 1, MADY CHRISTY Lombardo Sep 21, 2018 14:28
[2018-09-21 15:29] VITALS: BP 142/78
[2018-09-21 19:34] VITALS: BP 163/84
[2018-09-21 23:19] VITALS: BP 132/72
[2018-09-22] MEDS: methylPREDNISolone 40 MG/ML (Solu-MEDROL) VIAL IV SCH ×2 (00:39→05:46)
[2018-09-22] MEDS: PIPERACILLIN/TAZOBACTAM (BULK) 4.5 GM in NS (IVPB) 100 ML IV SCH ×2 (00:39→08:07)
[2018-09-22] MEDS: RT-ALBUTEROL/IPRATROPIUM 3 ML (DUONEB) VIAL INH SCH ×3 (02:43→10:53)
[2018-09-22] MEDS: NS IV 1000 ML 1,000 ML IV SCH ×2 (03:04→10:00)
[2018-09-22 03:47] VITALS: BP 153/78
[2018-09-22 04:44] LABS: BASOPHILS % (AUTO) 0 % (0-10); EOSINOPHILS % (AUTO) 0 % (0-10); HEMATOCRIT 37 % (40-54); HEMOGLOBIN 12.3 G/DL (13.3-17.7); LYMPHOCYTES # (AUTO) 0.5 X 10^3 (1.0-4.0); LYMPHOCYTES % (AUTO) 4 % (12-44); MEAN CORPUSCULAR HEMOGLOBIN 31 PG (25-34); MEAN CORPUSCULAR HGB CONC 34 G/DL (32-36); MEAN CORPUSCULAR VOLUME 92 FL (80-99); MEAN PLATELET VOLUME 10.2 FL (7.4-10.4); MONOCYTES # (AUTO) 0.4 X 10^3 (0.0-1.0); MONOCYTES % (AUTO) 3 % (0-12); NEUTROPHILS # (AUTO) 10.4 X 10^3 (1.8-7.8); NEUTROPHILS % (AUTO) 93 % (42-75); PLATELET COUNT 129 10^3/uL (130-400); RED CELL DISTRIBUTION WIDTH 14.5 % (10.0-14.5); WHITE BLOOD COUNT 11.2 10^3/uL (4.3-11.0)
[2018-09-22 05:14] LABS: ALBUMIN 3.1 GM/DL (3.2-4.5); BILIRUBIN,TOTAL 0.4 MG/DL (0.1-1.0); CREATININE SERUM 1.93 MG/DL (0.60-1.30); POTASSIUM 3.8 MMOL/L (3.6-5.0); TOTAL PROTEIN 5.2 GM/DL (6.4-8.2)
--- NOTE | 2018-09-22 06:10 | NUR ---
patient in bed during mask svn bt and tolerated it well; he is on RA and no distress was noted at this time.
[2018-09-22 08:00] VITALS: BP 161/82
[2018-09-22] MEDS: lisINopril 20 MG (PRINIVIL) TABLET PO SCH (08:07)
[2018-09-22] MEDS: ENOXAPARIN 30 MG/0.3 ML (LOVENOX) SYR SC SCH (08:07)
[2018-09-22] MEDS: LORATADINE (CLARITIN) 10 MG TAB PO SCH (08:07)
--- NOTE | 2018-09-22 10:14 | Diagnostic Imaging Report ---
PA and lateral chest at 925 hours. INDICATION: Pneumonia. FINDINGS: The appearance of the chest has improved since the prior exam of 09/21/2018 as the left lung base does seem better aerated. There is only a small amount of residual atelectasis/infiltrate and fluid in this area. There is minimal right lower lobe atelectasis/infiltrate. The upper lungs are clear. The heart is stable. The mediastinum is not widened. The osseous structures are intact. IMPRESSION: The appearance of the chest has improved since the prior exam as the left lung base does seem better aerated. A followup study would be recommended for continued evaluation. Dictated by: Dictated on workstation # [id number]
[2018-09-22] MEDS ORDERED: PRED10TA22 PO (11:37)
[2018-09-22] MEDS ORDERED: CEFD300C3 PO (11:37)
--- NOTE | 2018-09-22 11:40 | Discharge Summary-Hospitalist ---
Diagnosis/Chief Complaint Date of Admission Sep 19, 2018 at 15:20 Date of Discharge Discharge Date: Sep 22, 2018 Discharge Diagnosis (1) Acute bronchitis Status: Acute (2) Renal failure (ARF), acute on chronic Status: Acute (3) Dehydration Status: Acute (4) Dementia Status: Chronic Discharge Summary Discharge Physical Exam Allergies: Coded Allergies: bacitracin (Unverified Allergy, Unknown, 05/16/06) gramicidin D (Unverified Allergy, Unknown, 05/16/06) iodine (Unverified Allergy, Unknown, 05/16/06) neomycin (Unverified Allergy, Unknown, 05/16/06) polymyxin B (Unverified Allergy, Unknown, 05/16/06) povidone-iodine (Unverified Allergy, Unknown, 05/16/06) soap (Unverified Allergy, Unknown, 05/16/06) Vitals & I&Os Vital Signs Date Time Temp Pulse Resp B/P (MAP) Pulse Ox O2 Delivery O2 Flow Rate FiO2 09/22/18 12:15 53 20 179/86 97 Room Air 2.00 09/22/18 11:59 97.8 General Appearance: No Apparent Distress, WD/WN, Chronically ill Respiratory: Chest Non Tender, Lungs Clear, Normal Breath Sounds, No Accessory Muscle Use, No Respiratory Distress Cardiovascular: Regular Rate, Rhythm, No Edema, No Gallop, No JVD, No Murmur, Normal Peripheral Pulses Neurologic/Psychiatric: Alert, No Motor/Sensory Deficits, Normal Mood/Affect, Disoriented Hospital Course Was the Problem List Reviewed?: Yes Hospital course: Patient was admitted for respiratory insufficiency and placed on antibiotics and IV steroids for acute bronchitis with renal failure noted patient given gentle IV fluids during the entire hospital stay. Dementia was noted at discharge which is chronic but he does live with his and patient was comfortable and his was comfortable with discharge as planned by primary care provider yesterday and he was placed on appropriate antibiotics and steroid taper dose with close follow-up with Dr. Manriquez. ACEi and HCTZ held at [facility] due to elevated creatinine. Labs (last 24 hrs) Laboratory Tests 09/22/18 04:05: White Blood Count 11.2H, Red Blood Count 3.99L, Hemoglobin 12.3L, Hematocrit 37L , Mean Corpuscular Volume 92, Mean Corpuscular Hemoglobin 31, Mean Corpuscular Hemoglobin Concent 34, Red Cell Distribution Width 14.5, Platelet Count 129L, Mean Platelet Volume 10.2, Neutrophils (%) (Auto) 93H, Lymphocytes (%) (Auto) 4L , Monocytes (%) (Auto) 3, Eosinophils (%) (Auto) 0, Basophils (%) (Auto) 0, Neutrophils # (Auto) 10.4H, Lymphocytes # (Auto) 0.5L, Monocytes # (Auto) 0.4, Eosinophils # (Auto) 0.0, Basophils # (Auto) 0.0, Sodium Level 142, Potassium Level 3.8, Chloride Level 115H, Carbon Dioxide Level 16L, Anion Gap 11, Blood Urea Nitrogen 46H, Creatinine 1.93H, Estimat Glomerular Filtration Rate 33, BUN/Creatinine Ratio 24, Glucose Level 155H, Calcium Level 8.0L, Corrected Calcium 8.7, Total Bilirubin 0.4, Aspartate Amino Transf (AST/SGOT) 29, Alanine Aminotransferase (ALT/SGPT) 24, Alkaline Phosphatase 44, Total Protein 5.2L, Albumin 3.1L Microbiology 09/19/18 Blood Culture - Preliminary, Resulted No growth Patient resulted labs reviewed. Pending Labs Discussion & Recommendations Discharge Planning: <30 minutes discharge planning Discharge Home Medications: Active Scripts Active Prednisone 10 Mg Tab.ds.pk 10 Mg PO DAILY Take 6 tabs(60mg)daily,decrease by 1 tab(10MG)daily. Cefdinir 300 Mg Capsule 300 Mg PO BID Reported Iron (Ferrous Sulfate) 325 Mg Tablet 325 Mg PO Q48H Sodium Bicarbonate 650 Mg Tablet 325 Mg PO DAILY TAKES 1/2 (650MG) TABLET Vitamin D3 (Cholecalciferol (Vitamin D3)) 1,000 Unit Capsule 1,000 Unit PO DAILY Loratadine 10 Mg Tablet 10 Mg PO DAILY Ventolin Hfa (Albuterol Sulfate) 18 Gm Hfa.aer.ad 2 Puff INH TID PRN Calcitriol 0.25 Mcg Capsule 0.25 Mcg PO MOWEFR Clopidogrel (Clopidogrel Bisulfate) 75 Mg Tablet 75 Mg PO DAILY Flomax (Tamsulosin HCl) 0.4 Mg Cap 0.4 Mg PO HS Metoprolol Tartrate 25 Mg Tablet 12.5 Mg PO BID TAKES 1/2 (25MG) TABLET Eliquis (Apixaban) 2.5 Mg Tablet 2.5 Mg PO BID Memantine HCl 10 Mg Tablet 10 Mg PO BID Promethazine-Codeine Syrup (Promethazine HCl/Codeine) 118 Ml Syrup 5-10 Ml PO Q8H PRN Instructions to patient/family Please see electronic discharge instructions given to patient. Clinical Quality Measures DVT/VTE Risk/Contraindication: Risk Factor Score Per Nursin RFS Level Per Nursing on Admit: 4+=Very High Contraindications-Pharm: Other *list below* Problem Qualifiers (1) Acute bronchitis: Bronchitis organism: unspecified organism Qualified Codes: J20.9 - Acute bronchitis, unspecified (2) Renal failure (ARF), acute on chronic: Acute renal failure type: unspecified Chronic kidney disease stage: stage 4 (severe) Qualified Codes: N17.9 - Acute kidney failure, unspecified; N18.4 - Chronic kidney disease, stage 4 (severe) (3) Dementia: Dementia type: Alzheimer's disease Alzheimer's disease onset: unspecified onset Dementia behavioral disturbance: without behavioral disturbance Qualified Codes: G30.9 - Alzheimer's disease, unspecified; F02.80 - Dementia in other diseases classified elsewhere without behavioral disturbance ELIJAH MULLEN DO Sep 22, 2018 11:40
[2018-09-22 11:59] VITALS: BP 179/86
--- NOTE | 2018-09-22 12:09 | Pulmonary Progress Note ---
Subjective Time Seen by a Provider: 12:08 Subjective/Events-last exam PT feels improved Sepsis Event Evaluation Height, Weight, BMI Height: 5'9.00" Weight: 151lbs. 0.0oz. 68.653604uu; 22.3 BMI Method:Estimated Focused Exam Lactate Level 09/19/18 16:30: Lactic Acid Level 2.05*H 09/19/18 18:38: Lactic Acid Level 1.20 Exam Exam Vital Signs Date Time Temp Pulse Resp B/P (MAP) Pulse Ox O2 Delivery O2 Flow Rate FiO2 09/22/18 11:59 97.8 53 20 179/86 (117) 97 Room Air 09/22/18 10:53 93 Room Air 09/22/18 08:14 Room Air 09/22/18 08:00 97.6 65 20 161/82 (108) 94 Room Air 09/22/18 06:06 92 Room Air 09/22/18 03:47 97.6 62 16 153/78 (103) 90 Room Air 09/22/18 02:44 90 Room Air 09/21/18 23:19 97.0 53 14 132/72 (92) 98 Room Air 09/21/18 23:14 90 Room Air 09/21/18 20:35 Room Air 09/21/18 20:00 Room Air 09/21/18 19:34 98.9 85 20 163/84 (110) 95 Room Air 09/21/18 19:01 91 Room Air 09/21/18 15:29 98.6 78 20 142/78 (99) 94 Room Air I & O 09/22/18 07:00 Intake Total 3940 ml Balance 3940 ml Height & Weight Height: 5'9.00" Weight: 151lbs. 0.0oz. 68.697565kw; 22.3 BMI Method:Estimated General Appearance: No Apparent Distress, WD/WN, Thin HEENT: Normal ENT Inspection Neck: Full Range of Motion, Normal Inspection Respiratory: No Accessory Muscle Use, No Respiratory Distress, Decreased Breath Sounds, Other (Congestion and chest is less) Cardiovascular: Regular Rate, Rhythm, No Murmur Capillary Refill: Less Than 3 Seconds Gastrointestinal: non tender, soft Extremity: Normal Capillary Refill, No Pedal Edema Neurologic/Psychiatric: Alert, Oriented x3 Skin: Normal Color Lymphatic: No Adenopathy Results Lab Laboratory Tests 09/21/18 04:37 09/22/18 04:05 Assessment/Plan Assessment/Plan COPDAE -Duoneb Q4 -Oxygen Solumedrol Q 6 40mg RLL PNA with sepsis (on admission) - improving -Continue Zosyn -CXR shows improvement -Savage culture Metabolic acidosis -Monitor -Give 2 amps of bicarb -IVF -Hold HCTZ CRF -IVF and monitor AYE CHRISTINA DO Sep 22, 2018 12:09
[2018-09-22 12:15] VITALS: BP 179/86
[2018-09-22] MEDS ORDERED: SODIUM BICARB 8.4% 50 MEQ/50 ML VIAL IV NR (12:15)
--- NOTE | 2018-09-26 08:31 | Physician Query Clarification ---
PQ-Conflicting Diagnosis Admission/Discharge Admission Date: Sep 19, 2018 at 15:20 Discharge Date: Sep 22, 2018 at 12:15 The medical record reflects the following clinical scenario: History/Risk Factors: 83yo with hx of dementia directly admitted from Dr. Manriquez's office secondary to worsening SOB and productive cough. Clinical Findings: Fever, Chills, Sweats, Weakness, Malaise,Cough, Dry, Shortness of breath, SOB with exertion, Wheezing, Sputum; Chest x-ray shows pneumonia today. Treatment: Ceftriaxone IV and Piperacillin IV Question: Do you agree with the impression of the [Pneumonia] per [Tigre]. Please document a response in Progress Note or Discharge Summary. 1. Yes 2. No 3. Other, with explanation of clinical findings 4. Clinically undetermined, no explanation for clinical findings. PHYSICIAN RESPONSE Do you agree w/Consulting Dx?: Yes Please remember a lack of response to the above will prompt a phone page by [facility]I/Coding staff. In responding to this query, please exercise your independent professional judgment. The purpose of this communication is to more accurately reflect the complexity of your patients condition. The fact that a question is asked does not imply that any particular answer is desired or expected. Thank you for your timely response to this clarification. Requestors name: Maritza Welch THIS PHYSICIAN QUERY FORM IS A PERMANENT PART OF THE MEDICAL RECORD RUDOLPH WELCH Sep 26, 2018 08:31 ELIJAH MULLEN DO Sep 26, 2018 09:24
== END 2018-09-22 12:15 | disposition home or self-care (01) | DRG 871 ==
LOC: 4TH 15:20
PROVIDERS: ADMIT Family Medicine; ATTEND Family Medicine
DX: A41.9 Sepsis, unspecified organism (principal); J18.9 Pneumonia, unspecified organism; J44.0 Chronic obstructive pulmonary disease with (acute) lower respiratory infection; J44.1 Chronic obstructive pulmonary disease with (acute) exacerbation; N17.9 Acute kidney failure, unspecified; E87.2 Acidosis; I12.9 Hypertensive chronic kidney disease with stage 1 through stage 4 chronic kidney disease, or unspecified chronic kidney disease; N18.4 Chronic kidney disease, stage 4 (severe); G30.9 Alzheimer's disease, unspecified; F02.80 Dementia in other diseases classified elsewhere, unspecified severity, without behavioral disturbance, psychotic disturbance, mood disturbance, and anxiety; I73.9 Peripheral vascular disease, unspecified; R13.10 Dysphagia, unspecified; K21.9 Gastro-esophageal reflux disease without esophagitis; J30.2 Other seasonal allergic rhinitis; N42.9 Disorder of prostate, unspecified; R63.0 Anorexia; R53.1 Weakness
CPT/HCPCS: 36415; 71046; 74230; 80053; 81000; 83605; 84443; 85007; 85025; 85027; 85610; 85730; 87040; 94640; 94760

== ENCOUNTER → 2018-09-27 | Outpatient (CLI) | payer MEDICARE, OTHER ==
[~2018-09-27] MED LIST changes: +ALBU18HF2 INH; +APIX2.5T PO; +AZIT250T12 PO; +CALC0.253 PO; +CEFD300C3 PO; +CHOL10007 PO; +CLOP75TA28 PO; +CODE118S4 PO; +FERR-84 PO; +MEMA10TA22 PO; +METO-333 PO; +PRED10TA22 PO; +SODI650T PO; +TAMS0.4C98 PO
[2018-09-27 10:42] LABS: CALCIUM 8.3 MG/DL (8.5-10.1); CREATININE SERUM 1.79 MG/DL (0.60-1.30); POTASSIUM 3.2 MMOL/L (3.6-5.0)
== END ==
LOC: LAB 10:06
PROVIDERS: ATTEND Family Medicine
DX: N28.9 Disorder of kidney and ureter, unspecified (principal)
CPT/HCPCS: 36415; 80048

== ENCOUNTER → 2018-09-27 | Outpatient (CLI) | payer MEDICARE, OTHER ==
--- NOTE | 2018-09-27 17:44 | Diagnostic Imaging Report ---
INDICATION: Follow-up pneumonia. TIME OF EXAM: 12:10 p.m. Correlation is made with prior study from 09/22/2018. FINDINGS: Linear densities in lung bases persist consistent with some scarring or atelectasis. No infiltrates are seen. There is no effusion or pneumothorax. The pulmonary vascularity is normal. IMPRESSION: Bibasilar scarring or atelectasis. The study is otherwise unremarkable. Dictated by: Dictated on workstation # [id number]
== END ==
LOC: RAD 12:01
PROVIDERS: ATTEND Family Medicine
DX: J18.9 Pneumonia, unspecified organism (principal)
CPT/HCPCS: 71046

== ENCOUNTER → 2018-12-06 | Outpatient (CLI) | payer MEDICARE, OTHER ==
[2018-12-06 11:58] LABS: CALCIUM 9.1 MG/DL (8.5-10.1); CREATININE SERUM 1.76 MG/DL (0.60-1.30); POTASSIUM 4.1 MMOL/L (3.6-5.0)
== END ==
LOC: LAB 11:18
PROVIDERS: ATTEND Family Medicine
DX: N28.9 Disorder of kidney and ureter, unspecified (principal)
CPT/HCPCS: 36415; 80048

== ENCOUNTER → 2020-06-18 | Outpatient (CLI) | payer MEDICARE, OTHER ==
[~2020-06-18] MED LIST changes: -MEMA10TA22 PO; +MEMA10TA57 PO; +NF-SODBICA PO; -SODI650T PO; -TAMS0.4C98 PO; +TMSL.4C PO
--- NOTE | 2020-06-18 14:28 | Diagnostic Imaging Report ---
INDICATION: Coughing, SOB, abdominal aneurysm. TECHNIQUE: Two supine views of the abdomen at 1:55 PM. CORRELATION STUDY: None. FINDINGS: There is presence of an aortoiliac endovascular stent graft. Narrowing at the origin and/or at the bifurcation/proximal aspect of the iliac component is not excluded given positioning and appearance. Overlying bowel gas has a nonobstructive appearance. Mild stool throughout the colon. No large fecal impaction. Partial visualization of right proximal femur fixation hardware. IMPRESSION: 1. Nonobstructive appearing bowel gas pattern. 2. Aortic endovascular stent graft is present. Possibility of kinking and/or narrowing at the origin and/or distal aspect is not excluded. Dictated by: Dictated on workstation # [id number]
--- NOTE | 2020-06-18 14:34 | Diagnostic Imaging Report ---
INDICATION: COUGHING,SOB, 1 BX OF ABDOMNIAL ANEURYSM. TECHNIQUE: Two view chest 1:51 PM CORRELATION STUDY: 09/27/2018 FINDINGS: Heart size stable. Mildly tortuous course thoracic aorta. Minimal areas of discoid atelectasis and/or scarring at the costophrenic angles. No infiltrate, effusion and/or pneumothorax. Partial visualization of a new vascular stent graft in the upper mid abdomen. Visualized osseous structures are unremarkable. IMPRESSION: 1. Minimal basilar atelectasis and/or scarring. Dictated by: Dictated on workstation # [id number]
== END ==
LOC: RAD 13:02
PROVIDERS: ATTEND Family Medicine
DX: R05 Cough (principal); R06.02 Shortness of breath; Z95.828 Presence of other vascular implants and grafts; Z86.79 Personal history of other diseases of the circulatory system
CPT/HCPCS: 71046; 74018

== ENCOUNTER → 2020-07-02 | Outpatient (CLI) | payer MEDICARE, OTHER ==
--- NOTE | 2020-07-02 13:23 | Diagnostic Imaging Report ---
PROCEDURE: US Aorta Doppler. TECHNIQUE: Multiple real time grayscale images were obtained over the abdominal aorta in various projections. INDICATION: History of abdominal aortic aneurysmal endovascular stent graft. FINDINGS: Stent appears to be in good orientation. Color Doppler imaging shows flow through the stent lumen with normal-appearing waveforms. The maximal diameter of the [place] aneurysmal sac is 4.6 x 5.2 cm in the distal aorta. Iliac arteries show mild dilatation measuring 2 cm on the left and 1.5 cm on the right. Doppler sampling shows normal velocities and waveforms throughout the aorta and iliac arteries. IMPRESSION: 1. Endoluminal stent graft is patent and appears in good orientation with normal velocities. 2. [place] aneurysmal sac does not appear significantly changed in diameter when compared with previous CT scan of 06/20/2016. Dictated by: Dictated on workstation # [id number]
== END ==
LOC: RAD 09:00
PROVIDERS: ATTEND Family Medicine
DX: Z95.828 Presence of other vascular implants and grafts (principal)
CPT/HCPCS: 93978

== ENCOUNTER → 2020-07-20 | Outpatient (CLI) | payer MEDICARE, OTHER ==
--- NOTE | 2020-07-20 16:08 | Diagnostic Imaging Report ---
INDICATION: Right elbow pain and swelling. FINDINGS: Three views of the right elbow show some degenerative change with small osteophytes forming at the margins of the articular surfaces. There is no fracture, dislocation, or pathologic effusion. IMPRESSION: Degenerative changes of the right elbow. No acute abnormality is seen. Dictated by: Dictated on workstation # [id number]
== END ==
LOC: RAD 12:45
PROVIDERS: ATTEND Family Medicine
DX: M19.021 Primary osteoarthritis, right elbow (principal)
CPT/HCPCS: 73080

== ENCOUNTER → 2020-12-31 | Outpatient (CLI) | payer MEDICARE, OTHER ==
--- NOTE | 2020-12-31 15:01 | Diagnostic Imaging Report ---
INDICATION: Mid back pain. COMPARISON: None. FINDINGS: Three views of the thoracic column demonstrate normal alignment. There is moderate diffuse degenerative disc disease. No osseous lesion or fracture is seen. Basilar atelectasis in the lung bases. IMPRESSION: Diffuse moderate degenerative disc disease without fracture. Dictated by: Dictated on workstation # [id number]
--- NOTE | 2020-12-31 15:04 | Diagnostic Imaging Report ---
EXAMINATION: Lumbar spine, 12/31/2020. INDICATION: Back pain. FINDINGS: Three views of the lumbar spine. There is an age-indeterminate compression deformity at L2. Remaining vertebral body heights appear maintained. There is intervertebral disc space narrowing and anterior spurring at L1-L2 and L2-L3. Anterior spurring with endplate sclerosis is seen at L3-L4 and L4-L5 and also at L5-S1. There is facet hypertrophy throughout the entire lumbar spine. There is a mild scoliotic deformity. There are no significant subluxations. Incidental note is made of aneurysmal dilatation of the abdominal aorta with a stent in place. IMPRESSION: 1. Multilevel diffuse degenerative disease with an age-indeterminate compression deformity at L2. If there is focal point tenderness, MRI could provide further characterization. Dictated by: Dictated on workstation # [id number]
== END ==
LOC: RAD 12:24
PROVIDERS: ATTEND Family Medicine
DX: M47.814 Spondylosis without myelopathy or radiculopathy, thoracic region (principal); M47.816 Spondylosis without myelopathy or radiculopathy, lumbar region; M43.8X6 Other specified deforming dorsopathies, lumbar region
CPT/HCPCS: 72072; 72100

== ENCOUNTER → 2021-09-01 | Outpatient (CLI) | payer MEDICARE, OTHER ==
--- NOTE | 2021-09-01 14:53 | Diagnostic Imaging Report ---
INDICATION: Pain and swelling of the left index finger. FINDINGS: There appears to be contracture deformity of the left fingers. There is no obvious fracture or dislocation. Soft tissues are unremarkable. IMPRESSION: Contracture deformity of the left hand involving fingers. This may reflect Dupuytren's contracture. Recommend clinical correlation. Dictated by: Dictated on workstation # [id number]
== END ==
LOC: RAD 12:16
PROVIDERS: ATTEND Family Medicine
DX: M24.542 Contracture, left hand (principal)
CPT/HCPCS: 73130

== ENCOUNTER 2021-12-06 21:42 | Inpatient (IN) | payer MEDICARE ==
[~2021-12-06] VITALS: Ht 175 cm; Wt 68.7 kg
[2021-12-06 22:33] LABS: MEAN CORPUSCULAR HGB CONC 33 g/dL (32-36)
[2021-12-06 22:35] LABS: BASOPHILS # (AUTO) 0.1 10^3/uL (0.0-0.1); BASOPHILS % (AUTO) 0 % (0-10); EOSINOPHILS % (AUTO) 0 % (0-10); HEMATOCRIT 48 % (40-54); HEMOGLOBIN 15.5 g/dL (13.3-17.7); LYMPHOCYTES # (AUTO) 0.9 10^3/uL (1.0-4.0); LYMPHOCYTES % (AUTO) 7 % (12-44); MEAN CORPUSCULAR HEMOGLOBIN 31 pg (25-34); MEAN CORPUSCULAR VOLUME 94 fL (80-99); MEAN PLATELET VOLUME 10.7 fL (9.0-12.2); MONOCYTES # (AUTO) 0.6 10^3/uL (0.0-1.0); MONOCYTES % (AUTO) 4 % (0-12); NEUTROPHILS # (AUTO) 12.3 10^3/uL (1.8-7.8); NEUTROPHILS % (AUTO) 87 % (42-75)
--- NOTE | 2021-12-06 22:53 | ED General ---
General Chief Complaint: Neurological Problems Stated Complaint: WEAKNESS, DEHYDRATION Nursing Triage Note: STATES PATIENT HAS NOT BEEN EATING WELL OVER THE LAST THREE DAYS AND TODAY HAS NOT DRANK ANYTHING. STATES HE IS PROGRESSIVLY GETTING WEAKER. STATES PATIENT HAS DEMENTIA, STAGE FOUR KIDNEY DISEASE. Source of Information: Patient, Family, Old Records Exam Limitations: No Limitations History of Present Illness Date Seen by Provider: Dec 06, 2021 Time Seen by Provider: 21:54 Initial Comments This 86-year-old gentleman is accompanied to the emergency room by his with concerns about 3 days of excessive sleeping and decreased oral intake. He did not get up and get dressed until afternoon today. This is not his normal behavior. He is not wanting to eat or drink. He has history of chronic kidney disease and dementia. Today he complained of back pain and abdominal pain which is also unusual for him. He is typically capable of performing ADLs with some assistance. This week he has refused to shower. He has a new cough today. Typically he will ambulate around the house independently but he has not attempted to do so today. Dr. Boyer is his primary care provider. Allergies and Home Medications Allergies Coded Allergies: bacitracin (Unverified Allergy, Unknown, 05/16/06) gramicidin D (Unverified Allergy, Unknown, 05/16/06) iodine (Unverified Allergy, Unknown, 05/16/06) neomycin (Unverified Allergy, Unknown, 05/16/06) polymyxin B (Unverified Allergy, Unknown, 05/16/06) povidone-iodine (Unverified Allergy, Unknown, 05/16/06) soap (Unverified Allergy, Unknown, 05/16/06) Patient Home Medication List Home Medication List Reviewed: Yes Albuterol Sulfate (Ventolin Hfa) 18 Gm Hfa.aer.ad, 2 PUFF INH TID PRN for SHORTNESS OF BREATH, (Reported) Entered as Reported by: ROSARIO BOYD on 09/20/18 1140 Apixaban (Eliquis) 2.5 Mg Tablet, 2.5 MG PO BID, (Reported) Entered as Reported by: ROSARIO BOYD on 09/20/18 1130 Calcitriol (Calcitriol) 0.25 Mcg Capsule, 0.25 MCG PO MoWeFr, (Reported) Entered as Reported by: ROSARIO BOYD on 09/20/18 1130 Cefdinir (Cefdinir) 300 Mg Capsule, 300 MG PO BID Prescribed by: ELIJAH MULLEN on 09/22/18 1137 Cholecalciferol (Vitamin D3) (Vitamin D3) 1,000 Unit Capsule, 1,000 UNIT PO DAILY, (Reported) Entered as Reported by: ROSARIO BOYD on 09/20/18 1140 Clopidogrel Bisulfate (Clopidogrel) 75 Mg Tablet, 75 MG PO DAILY, (Reported) Entered as Reported by: ROSARIO BOYD on 09/20/18 1130 Ferrous Sulfate (Iron) 325 Mg Tablet, 325 MG PO Q48H, (Reported) Entered as Reported by: ROSARIO BOYD on 09/20/18 1145 Loratadine (Loratadine) 10 Mg Tablet, 10 MG PO DAILY, (Reported) Entered as Reported by: ROSARIO BOYD on 09/20/18 1140 Memantine HCl (Memantine HCl) 10 Mg Tablet, 10 MG PO BID, (Reported) Entered as Reported by: ROSARIO BOYD on 09/20/18 113 Metoprolol Tartrate (Metoprolol Tartrate) 25 Mg Tablet, 12.5 MG PO BID, (Reported) Entered as Reported by: ROSARIO BOYD on 09/20/18 1130 Prednisone (Prednisone) 10 Mg Tab.ds.pk, 10 MG PO DAILY Prescribed by: ELIJAH MULLEN on 09/22/18 1137 Promethazine HCl/Codeine (Promethazine-Codeine Syrup) 118 Ml Syrup, 5-10 ML PO Q8H PRN for COUGH, (Reported) Entered as Reported by: ROSARIO BOYD on 09/20/18 1130 Sodium Bicarbonate (Sodium Bicarbonate) 650 Mg Tablet, 325 MG PO DAILY, (Reported) Entered as Reported by: ROSARIO BOYD on 09/20/18 1143 Tamsulosin HCl (Flomax) 0.4 Mg Cap, 0.4 MG PO HS, (Reported) Entered as Reported by: ROSARIO BOYD on 09/20/18 113 Review of Systems Review of Systems Constitutional: see HPI EENTM: no symptoms reported Respiratory: see HPI Cardiovascular: no symptoms reported Gastrointestinal: see HPI Genitourinary: no symptoms reported Musculoskeletal: no symptoms reported Skin: no symptoms reported Psychiatric/Neurological: See HPI Hematologic/Lymphatic: No Symptoms Reported Immunological/Allergic: no symptoms reported Past Ygkfojs-Phrpyb-Oyqmgf Hx Patient Social History Tobacco Use?: No Use of E-Cig and/or Vaping dev: No Substance use?: No Alcohol Use?: No (Prior heavy alcohol consumption) Seasonal Allergies Seasonal Allergies: Yes Past Medical History Surgeries: Yes (5 YRS AGO, 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, ANEURYSM REPAIR) Vascular Surgery (AAA stenting) Respiratory: Yes COPD Currently Using CPAP: No Currently Using BIPAP: No Cardiac: Yes (PAD, AAA) Peripheral Vascular Neurological: Yes Dementia Reproductive Disorders: No Genitourinary: Yes (STG 4 KIDNEY DISEASE) Prostate Problems Gastrointestinal: Yes Gastroesophageal Reflux Fractures Endocrine: No HEENT: Yes Cataract, Dysphagia Hearing Impairment: Hard of Hearing Cancer: No Psychosocial: No Blood Disorders: No Physical Exam-Suspected Sepsis Physical Exam Vital Signs Vital Signs - First Documented 12/06/21 12/07/21 22:25 02:30 Temp 36.7 Pulse 88 Resp 20 B/P (MAP) 146/97 (113) Pulse Ox 92 O2 Delivery Room Air O2 Flow Rate 2.00 Capillary Refill : Less Than 3 Seconds Blood Pressure Mean: 113 Height, Weight, BMI Height: 5'9.00" Weight: 151lbs. 0.0oz. 68.693545po; 21.00 BMI Method:Estimated General Appearance: No Apparent Distress, WD/WN, Thin HEENT: PERRL/EOMI, Normal ENT Inspection, Other (Oropharynx somewhat dry) Neck: Normal Inspection Respiratory: Lungs Clear, Normal Breath Sounds, No Accessory Muscle Use Cardiovascular: Regular Rate, Rhythm, No Edema, No Murmur Gastrointestinal: Normal Bowel Sounds, Soft; No Distended; Tenderness (Generalized tenderness throughout the abdomen) Extremity: Normal Inspection, No Pedal Edema Neurologic/Psychiatric: Alert, Disoriented Skin: normal color, warm/dry Focused Exam Lactate Level 12/06/21 22:28: Lactic Acid Level 3.35*H 12/07/21 00:42: Lactic Acid Level 3.90*H 12/07/21 02:50: Lactic Acid Level 1.91 Lactic Acid Level Laboratory Tests Test 12/07/21 02:50 Lactic Acid Level 1.91 MMOL/L (0.50-2.00) Progress/Results/Core Measures Suspected Sepsis SIRS Temperature: Pulse: 88 Respiratory Rate: 20 Laboratory Tests 12/06/21 22:28: White Blood Count 14.0H Blood Pressure 146 /97 Mean: 113 12/06/21 22:28: Lactic Acid Level 3.35*H 12/07/21 00:42: Lactic Acid Level 3.90*H 12/07/21 02:50: Lactic Acid Level 1.91 Laboratory Tests 12/06/21 22:28: Creatinine 2.24H, INR Comment 1.2, Platelet Count 106L, Total Bilirubin 5.7H Results/Orders Lab Results Laboratory Tests Test 12/06/21 22:28 12/06/21 22:58 12/07/21 00:42 12/07/21 02:50 Range/Units White Blood Count 14.0 H 4.3-11.0 10^3/uL Red Blood Count 5.04 4.30-5.52 10^6/uL Hemoglobin 15.5 13.3-17.7 g/dL Hematocrit 48 40-54 % Mean Corpuscular Volume 94 80-99 fL Mean Corpuscular Hemoglobin 31 25-34 pg Mean Corpuscular Hemoglobin Concent 33 32-36 g/dL Red Cell Distribution Width 15.5 H 10.0-14.5 % Platelet Count 106 L 130-400 10^3/uL Mean Platelet Volume 10.7 9.0-12.2 fL Immature Granulocyte % (Auto) 1 % Neutrophils (%) (Auto) 87 H 42-75 % Lymphocytes (%) (Auto) 7 L 12-44 % Monocytes (%) (Auto) 4 0-12 % Eosinophils (%) (Auto) 0 0-10 % Basophils (%) (Auto) 0 0-10 % Neutrophils # (Auto) 12.3 H 1.8-7.8 10^3/uL Lymphocytes # (Auto) 0.9 L 1.0-4.0 10^3/uL Monocytes # (Auto) 0.6 0.0-1.0 10^3/uL Eosinophils # (Auto) 0.0 0.0-0.3 10^3/uL Basophils # (Auto) 0.1 0.0-0.1 10^3/uL Immature Granulocyte # (Auto) 0.2 H 0.0-0.1 10^3/uL Neutrophils % (Manual) 88 % Lymphocytes % (Manual) 6 % Monocytes % (Manual) 6 % Percent Immature Platelet Fraction 2.4 0.0-7.6 % [place] Cells SLIGHT Blood Morphology Comment NORMAL Prothrombin Time 15.8 H 12.2-14.7 SEC INR Comment 1.2 0.8-1.4 Activated Partial Thromboplast Time 29 24-35 SEC Sodium Level 141 135-145 MMOL/L Potassium Level 5.9 H 3.6-5.0 MMOL/L Chloride Level 107 98-107 MMOL/L Carbon Dioxide Level 16 L 21-32 MMOL/L Anion Gap 18 H 5-14 MMOL/L Blood Urea Nitrogen 39 H 7-18 MG/DL Creatinine 2.24 H 0.60-1.30 MG/DL Estimat Glomerular Filtration Rate 28 BUN/Creatinine Ratio 17 Glucose Level 233 H 70-105 MG/DL Lactic Acid Level 3.35 *H 3.90 *H 1.91 0.50-2.00 MMOL/L Calcium Level 9.0 8.5-10.1 MG/DL Corrected Calcium 9.3 8.5-10.1 MG/DL Magnesium Level 2.1 1.6-2.4 MG/DL Total Bilirubin 5.7 H 0.1-1.0 MG/DL Aspartate Amino Transf (AST/SGOT) 78 H 5-34 U/L Alanine Aminotransferase (ALT/SGPT) 53 0-55 U/L Alkaline Phosphatase 221 H 40-136 U/L C-Reactive Protein High Sensitivity 11.80 H 0.00-0.50 MG/DL Total Protein 7.3 6.4-8.2 GM/DL Albumin 3.6 3.2-4.5 GM/DL Procalcitonin 0.20 H <0.10 NG/ML Influenza Type A (RT-PCR) Not Detected Not Detecte Influenza Type B (RT-PCR) Not Detected Not Detecte SARS-CoV-2 RNA (RT-PCR) Not Detected Not Detecte Urine Color DARK YELLOW Urine Clarity SL CLOUDY Urine pH 5.5 5-9 Urine Specific [place] 1.025 H 1.016-1.022 Urine Protein 1+ H NEGATIVE Urine Glucose (UA) TRACE H NEGATIVE Urine Ketones 2+ H NEGATIVE Urine Nitrite NEGATIVE NEGATIVE Urine Bilirubin 1+ H NEGATIVE Urine Urobilinogen 4.0 < = 1.0 MG/DL Urine Leukocyte Esterase NEGATIVE NEGATIVE Urine RBC (Auto) 2+ H NEGATIVE Urine RBC 0-2 /HPF Urine WBC NONE /HPF Urine Squamous Epithelial Cells 0-2 /HPF Urine Crystals NONE /LPF Urine Bacteria TRACE /HPF Urine Casts NONE /LPF Urine Mucus SMALL H /LPF Urine Culture Indicated CULTURE PENDING My Orders Orders - SHARONDA WALKER MD Ed Iv/Invasive Line Start (12/06/21 21:54) Cbc With Automated Diff (12/06/21 21:54) Comprehensive Metabolic Panel (12/06/21 21:54) Magnesium (12/06/21 21:54) Manual Differential (12/06/21 22:28) Blood Culture (12/06/21 22:49) Sputum Culture (12/06/21 22:49) Urinalysis (12/06/21 22:49) Urine Culture (12/06/21 22:49) Protime With Inr (12/06/21 22:49) Partial Thromboplastin Time (12/06/21 22:49) Chest 1 View, Ap/Pa Only (12/06/21 22:49) Vital Signs Adult Sepsis Patie Q15M (12/06/21 22:49) O2 (12/06/21 22:49) Remove Rings In Anticipation O (12/06/21 22:49) Lactic Acid Analyzer (12/06/21 22:49) Hs C Reactive Protein (12/06/21 22:49) Procalcitonin (Pct) (12/06/21 22:49) Peña Cath (12/06/21 22:49) Ns Iv 1000 Ml (Sodium Chloride 0.9%) (12/06/21 23:00) Ondansetron Injection (Zofran Injectio (12/06/21 23:00) Ct Chest/Abdomen/Pelvis Wo (12/06/21 22:49) Covid 19 Inhouse Test (12/06/21 23:51) Influenza A And B By Pcr (12/06/21 23:51) Piperacillin Sodium/Tazobactam (Zosyn Vi (12/07/21 00:45) Medications Given in ED Current Medications Medications Dose Ordered Sig/Alejandra Route Start Time Stop Time Status Last Admin Dose Admin Ondansetron HCl 8 mg ONCE ONCE IVP 12/06/21 23:00 12/06/21 23:01 DC 12/06/21 23:25 8 MG Piperacillin Sod/ Tazobactam Sod 4.5 gm/Sodium Chloride 100 ml @ 200 mls/hr ONCE ONCE IV 12/07/21 00:45 12/07/21 01:14 DC 12/07/21 02:08 200 MLS/HR Vital Signs/I&O 12/06/21 12/07/21 12/07/21 12/07/21 22:25 02:30 02:40 03:08 Temp 36.7 37.0 37.6 Pulse 88 104 103 Resp 20 16 16 B/P (MAP) 146/97 (113) 112/75 122/74 (90) Pulse Ox 92 94 90 O2 Delivery Room Air Nasal Cannula Nasal Cannula Room Air O2 Flow Rate 2.00 2.00 12/07/21 04:03 Temp 37.5 Pulse 93 Resp 18 B/P (MAP) 109/63 (78) Pulse Ox 92 O2 Delivery Nasal Cannula O2 Flow Rate 2.00 Capillary Refill : Less Than 3 Seconds 2 Blood Pressure Mean: 113 Progress Note : Progress Note Patient was treated with Zofran and IV fluids. Labs suggested infectious process. No definite source of infection was identified on evaluation. There was some question of gallbladder disease on CT scan. Follow-up ultrasound was added to the bridging orders to be performed in the morning. In the meantime, Zosyn is being administered. CODE STATUS was discussed with patient's . He is not a competent decision maker to discuss CODE STATUS himself. elects a DNR. Diagnostic Imaging Diagonstic Imaging: Xray Plain Films/CT/US/NM/MRI: chest Comments Chest x-ray demonstrated some atelectasis but no definite consolidation to suggest pneumonia. X-ray viewed by me and report not yet available. Diagonstic Imaging: CT Plain Films/CT/US/NM/MRI: chest, abdomen, pelvis Comments CT chest, abdomen and pelvis stat rad report reviewed. Suggestion of possible gallbladder disease with no other acute abnormalities appreciated. Departure Communication (Admissions) Time/Spoke to Admitting Phy: 00:35 Dr. Larsen Impression Primary Impression: Abdominal pain Qualified Codes: R10.84 - Generalized abdominal pain Additional Impressions: Lactic acidosis Altered mental status Qualified Codes: R41.82 - Altered mental status, unspecified Advanced dementia Disposition: ADMITTED INPATIENT Condition: Stable Admissions Decision to Admit Reason: Admit from ER (General) Decision to Admit/Date: Dec 07, 2021 Time/Decision to Admit Time: 00:35 Departure-Patient Inst. Referrals: MIKAL BOYER DO (PCP/Family) Primary Care Physician SHARONDA WALKER MD Dec 06, 2021 22:53
[2021-12-06 22:55] LABS: ALBUMIN 3.6 GM/DL (3.2-4.5); BILIRUBIN,TOTAL 5.7 MG/DL (0.1-1.0); CREATININE SERUM 2.24 MG/DL (0.60-1.30); MAGNESIUM 2.1 MG/DL (1.6-2.4); POTASSIUM 5.9 MMOL/L (3.6-5.0); TOTAL PROTEIN 7.3 GM/DL (6.4-8.2)
[2021-12-06] MEDS ORDERED: ONDANSETRON 4 MG/2 ML (SDV) Z0FRAN IVP ONE (23:00)
[2021-12-06] MEDS ORDERED: NS IV 1000 ML 1,000 ML IV SCH (23:00)
[2021-12-06 23:05] LABS: INR 1.2 (0.8-1.4); PROTHROMBIN TIME PATIENT 15.8 SEC (12.2-14.7)
[2021-12-06 23:07] LABS: LYMPHOCYTES % (MANUAL) 6 %; MONOCYTES % (MANUAL) 6 %; NEUTROPHILS % (MANUAL) 88 %; PLATELET COUNT 106 10^3/uL (130-400)
[2021-12-06 23:08] LABS: BURR CELLS SLIGHT; RBC MORPH NORMAL
[2021-12-07] MEDS ORDERED: PIPERACILLIN SODIUM/TAZOBACTAM 4.5 GM in NS (IVPB) 100 ML IV ONE (00:45)
[2021-12-07 00:48] LABS: CLARITY,URINE SL CLOUDY; COLOR,URINE DARK YELLOW; GLUCOSE, URINE (UA) TRACE (NEGATIVE); KETONES,URINE 2+ (NEGATIVE); LEUKOCYTE ESTERASE ,URINE NEGATIVE (NEGATIVE); NITRITE,URINE NEGATIVE (NEGATIVE); PH,URINE 5.5 (5-9); PROTEIN,URINE 1+ (NEGATIVE)
[2021-12-07 00:57] LABS: BACTERIA,URINE TRACE /HPF; BILIRUBIN,URINE 1+ (NEGATIVE); RBC,URINE 0-2 /HPF; SQUAMOUS EPITHELIAL CELL,UR 0-2 /HPF
[2021-12-07 02:40] VITALS: BP 122/74
[2021-12-07] MEDS ORDERED: fentaNYL INJ 100 MCG/2 ML AMP IV PRN (03:00)
[2021-12-07] MEDS ORDERED: ONDANSETRON 4 MG/2 ML (SDV) Z0FRAN IV PRN (03:00)
[2021-12-07] MEDS: NS IV 1000 ML 1,000 ML IV SCH ×3 (03:02→15:29)
[2021-12-07 04:03] VITALS: BP 109/63
--- NOTE | 2021-12-07 06:59 | Diagnostic Imaging Report ---
INDICATION: 86-year-old male, cough. TECHNIQUE: Single view chest 11:23 PM. CORRELATION STUDY: 06/18/2020 FINDINGS: Heart size stable. Mediastinum is prominent likely tortuous ectatic thoracic aorta. Vasculature appears borderline. Mildly prominent interstitial markings throughout both lung shipley without definitive infiltrate, effusion and/or pneumothorax. Partial visualization of apparent abdominal aortic endovascular stent graft. IMPRESSION: 1. Chronic-appearing changes about the lung shipley. No acute infiltrate. Prominent mediastinum likely tortuous ectatic thoracic aorta. Dictated by: Dictated on workstation # [id number]
--- NOTE | 2021-12-07 07:37 | Diagnostic Imaging Report ---
PROCEDURE: CT chest, abdomen, and pelvis without contrast. TECHNIQUE: Multiple contiguous axial images were obtained through the chest, abdomen, and pelvis without the use of intravenous contrast. Auto Exposure Controls were utilized during the CT exam to meet ALARA standards for radiation dose reduction. INDICATION: 86-year-old male, abdominal pain., Cough. CORRELATION STUDY: CT abdomen pelvis 06/20/2016 FINDINGS: CT CHEST: Heart size upper limits of normal. Scattered coronary artery calcification. There is tortuous ectatic course of the thoracic aorta with mild wall calcification. Nonaneurysmal. No pathologically enlarged mediastinal lymph nodes on this noncontrast study. A few calcified lymph nodes are present. Small esophageal hernia. Lung shipley with mildly prominent interstitial markings and emphysematous change. No infiltrate. No significant effusion. Osseous structures of the chest demonstrate no acute findings. Mildly advanced degenerative changes thoracic spine with minimal aspect scoliotic curvature. CT ABDOMEN and PELVIS: Unenhanced liver, spleen, pancreas and adrenal glands demonstrate no acute findings. Gallbladder distended. No overt bile duct dilatation or calcification. However, very small foci of gas is noted at the nondependent fundal aspect. Mild atrophic change of the kidneys. There is a low-density mass right kidney favors probable cyst. No calcification or obstruction. Aortobiiliac endovascular stent graft is present. AP diameter of the inferior abdominal aortic aneurysm is 6.2 cm. No abnormal periaortic soft tissue stranding or fluid. Scattered colonic diverticuli without evidence of acute diverticulitis. No gastrointestinal tract obstruction. Normal appendix suggested. No abdominal ascites and/or free air. Urinary bladder unremarkable. Prostate gland unremarkable. Advanced degenerative change of the visualized lumbar spine. Internal fixation hardware proximal right femur. IMPRESSION: CT CHEST: 1. Negative for acute abnormality of the chest. Incidental emphysematous changes lung shipley. No infiltrate. 2. Rather tortuous ectatic course of thoracic aorta. CT ABDOMEN and PELVIS: 1. Negative for acute abnormality about the abdomen and/or pelvis. 2. Approximately 6 cm infrarenal abdominal aortic aneurysm with presence of aorto biiliac endovascular stent graft. The aneurysm sac however does measure larger from prior. If indicated, consideration for contrast-enhanced assessment for evaluation of potential endoleak recommended. 3. Distended gallbladder. No overt bile duct dilatation. There is a small bubble of gas in the gallbladder non dependently and possibly of early emphysematous cholecystitis not excluded. 4. Colonic diverticulosis. Initial report was provided by [facility]. (Findings of the gallbladder not described at initial evaluation.) Report was faxed and called to [facility] , by jonathan at 7:35am. Dictated by: Dictated on workstation # [id number]
[2021-12-07 08:00] VITALS: BP 111/70
[2021-12-07] MEDS: PIPERACILLIN SODIUM/TAZOBACTAM 4.5 GM in NS (IVPB) 100 ML IV SCH ×2 (08:35→15:29)
--- NOTE | 2021-12-07 08:56 | History & Physical-Hospitalist ---
History of Present Illness Date Seen 12/07/21 Time Seen by a Provider: 08:51 Attending Physician Mushtaq Manriquez DO PCP Admitting Physician: Elias Larsen MD Attending Physician: Elias Larsen MD Referring Physician Date of Admission Dec 07, 2021 at 01:37 Home Medications & Allergies Home Medications Reviewed patient Home Medication Reconciliation performed by pharmacy medication reconciliations oil burner technician and/or nursing. Patients Allergies have been reviewed. Allergies Allergies Coded Allergies bacitracin (Unverified Allergy, Unknown, 05/16/06) gramicidin D (Unverified Allergy, Unknown, 05/16/06) iodine (Unverified Allergy, Unknown, 05/16/06) neomycin (Unverified Allergy, Unknown, 05/16/06) polymyxin B (Unverified Allergy, Unknown, 05/16/06) povidone-iodine (Unverified Allergy, Unknown, 05/16/06) soap (Unverified Allergy, Unknown, 05/16/06) Past Tpxyoft-Sggiqj-Pywgof Hx Patient Social History Marrital Status: Employed/Student: retired Tobacco Use?: No Use of E-Cig and/or Vaping dev: No Substance use?: No Alcohol Use?: No (Prior heavy alcohol consumption) Pt feels they are or have been: No Immunizations Up To Date First/Initial COVID19 Vaccinat: 04/23 Second COVID19 Vaccination Gildardo: 05/24 Seasonal Allergies Seasonal Allergies: Yes Current Status Communicates: Verbally Primary Language: Congolese Preferred Spoken Language: Congolese Is interpretation needed?: No Implanted or Applied Medical D: Stents Past Medical History Surgeries: Vascular Surgery (AAA stenting) COPD Currently Using CPAP: No Currently Using BIPAP: No Peripheral Vascular Dementia Prostate Problems Gastroesophageal Reflux Fractures Cataract, Dysphagia Hearing Impairment: Hard of Hearing Blood Disorders: Yes (DVT ) Review of Systems ROS-Unable to Obtain: limited by dementia- gives history Constitutional: see HPI Physical Exam Physical Exam Vital Signs Vital Signs - First Documented 12/06/21 12/07/21 22:25 02:30 Temp 36.7 Pulse 88 Resp 20 B/P (MAP) 146/97 (113) Pulse Ox 92 O2 Delivery Room Air O2 Flow Rate 2.00 Capillary Refill : Less Than 3 Seconds Height, Weight, BMI Height: 5'9.00" Weight: 151lbs. 0.0oz. [id number]; 22.43 BMI Method:Estimated General Appearance: No Apparent Distress, WD/WN HEENT: PERRL/EOMI, Moist Mucous Membranes; No Scleral Icterus (L), No Scleral Icterus (R) Neck: Normal Inspection, Supple Respiratory: Lungs Clear, No Accessory Muscle Use, No Respiratory Distress Cardiovascular: Regular Rate, Rhythm, No JVD, No Murmur Gastrointestinal: Normal Bowel Sounds, Non Tender, Soft; No Distended; Tenderness (right ) Extremity: Normal Capillary Refill, No Calf Tenderness, No Pedal Edema Neurologic/Psychiatric: Alert Results Results/Procedures Labs Laboratory Tests 12/06/21 22:28 Patient resulted labs reviewed. Imaging: Reviewed Imaging Report [facility] [place] [place] NAME: [facility] REC#: [id number] PT STATUS: ADM IN : 1935 PHYSICIAN: SHARONDA WALKER MD ADMIT DATE: 12/07/21 Draft Date of Exam:12/06/21 CHEST 1 VIEW, AP/PA ONLY INDICATION: 86-year-old male, cough. TECHNIQUE: Single view chest 11:23 PM. CORRELATION STUDY: 06/18/2020 FINDINGS: Heart size stable. Mediastinum is prominent likely tortuous ectatic thoracic aorta. Vasculature appears borderline. Mildly prominent interstitial markings throughout both lung shipley without definitive infiltrate, effusion and/or pneumothorax. Partial visualization of apparent abdominal aortic endovascular stent graft. IMPRESSION: 1. Chronic-appearing changes about the lung shipley. No acute infiltrate. Prominent mediastinum likely tortuous ectatic thoracic aorta. Dictated on workstation # [id number] Dict: 12/07/2156 Trans: 12/07/21 0659 JONATHAN [id number] Interpreted by: ALMONTE ALEGRIA DO Electronically signed by: [facility] [place] NAME: [facility] REC#: [id number] PT STATUS: ADM IN : 1935 PHYSICIAN: SHARONDA WALKER MD ADMIT DATE: 09/06/22/4TH Draft Date of Exam:12/06/21 CT CHEST/ABDOMEN/PELVIS WO PROCEDURE: CT chest, abdomen, and pelvis without contrast. TECHNIQUE: Multiple contiguous axial images were obtained through the chest, abdomen, and pelvis without the use of intravenous contrast. Auto Exposure Controls were utilized during the CT exam to meet ALARA standards for radiation dose reduction. INDICATION: 86-year-old male, abdominal pain., Cough. CORRELATION STUDY: CT abdomen pelvis 06/20/2016 FINDINGS: CT CHEST: Heart size upper limits of normal. Scattered coronary artery calcification. There is tortuous ectatic course of the thoracic aorta with mild wall calcification. Nonaneurysmal. No pathologically enlarged mediastinal lymph nodes on this noncontrast study. A few calcified lymph nodes are present. Small esophageal hernia. Lung shipley with mildly prominent interstitial markings and emphysematous change. No infiltrate. No significant effusion. Osseous structures of the chest demonstrate no acute findings. Mildly advanced degenerative changes thoracic spine with minimal aspect scoliotic curvature. CT ABDOMEN and PELVIS: Unenhanced liver, spleen, pancreas and adrenal glands demonstrate no acute findings. Gallbladder distended. No overt bile duct dilatation or calcification. However, very small foci of gas is noted at the nondependent fundal aspect. Mild atrophic change of the kidneys. There is a low-density mass right kidney favors probable cyst. No calcification or obstruction. Aortobiiliac endovascular stent graft is present. AP diameter of the inferior abdominal aortic aneurysm is 6.2 cm. No abnormal periaortic soft tissue stranding or fluid. Scattered colonic diverticuli without evidence of acute diverticulitis. No gastrointestinal tract obstruction. Normal appendix suggested. No abdominal ascites and/or free air. Urinary bladder unremarkable. Prostate gland unremarkable. Advanced degenerative change of the visualized lumbar spine. Internal fixation hardware proximal right femur. IMPRESSION: CT CHEST: 1. Negative for acute abnormality of the chest. Incidental emphysematous changes lung shipley. No infiltrate. 2. Rather tortuous ectatic course of thoracic aorta. CT ABDOMEN and PELVIS: 1. Negative for acute abnormality about the abdomen and/or pelvis. 2. Approximately 6 cm infrarenal abdominal aortic aneurysm with presence of aorto biiliac endovascular stent graft. The aneurysm sac however does measure larger from prior. If indicated, consideration for contrast-enhanced assessment for evaluation of potential endoleak recommended. 3. Distended gallbladder. No overt bile duct dilatation. There is a small bubble of gas in the gallbladder non dependently and possibly of early emphysematous cholecystitis not excluded. 4. Colonic diverticulosis. Initial report was provided by [facility]. (Findings of the gallbladder not described at initial evaluation.) Report was faxed and called to [facility] De Souza , by jonathan at 7:35am. LYDIA Raya, was also notified. Dictated on workstation # [id number] Dict: 12/07/21 0657 Trans: 12/07/21 0736 JONATHAN [id number] Interpreted by: LAMONTE ALEGRIA DO Electronically signed by: Assessment/Plan Admission Diagnosis Cholecystitis Admission Status: Inpatient Order (span 2 midnights) Reason for Inpatient Admission: see below Assessment and Plan Cholecystitis CT with possible gas in gallbladder Discussed with Dr Brown who will see in consultation Continue IV abx Hold Eliquis CKD Discussed with Dr Manriquez- Steel Buffer last month was 2.4 with GFR of 27 GFR 28 today and r&d lab technician of 2.24 Continue IVF Dementia Baseline dementia but lives at home with and functional with ADLs PT/OT DAVID PADRON MD Dec 07, 2021 08:56
--- NOTE | 2021-12-07 10:23 | Diagnostic Imaging Report ---
INDICATION: Abdominal pain. Gallbladder sonography performed in the routine fashion. There is no previous study for comparison. The liver shows normal echogenicity without focal lesion. There appears to be a large amount of sludge in the gallbladder. Gallbladder wall is not appreciably thickened. Common duct measured 6 mm. Pancreas is not well seen due to overlying gas. Aorta and IVC are also not well seen due to overlying gas. There appear to be 2 cysts in the right kidney, largest measured 2.6 x 3.4 cm. There is no hydronephrosis in the right kidney. Right kidney measured 9.1 cm in length. There is no ascites. IMPRESSION: There is prominent sludge in the gallbladder without stones or significant wall thickening. Common duct is borderline in diameter. There is no ascites. Dictated by: Dictated on workstation # [id number]
[2021-12-07 10:35] LABS: HEMOGLOBIN 13.3 g/dL (13.3-17.7); MEAN PLATELET VOLUME 10.4 fL (9.0-12.2); WHITE BLOOD COUNT 17.5 10^3/uL (4.3-11.0)
[2021-12-07 10:52] LABS: CALCIUM 8.2 MG/DL (8.5-10.1); CREATININE SERUM 2.45 MG/DL (0.60-1.30); POTASSIUM 4.7 MMOL/L (3.6-5.0)
--- NOTE | 2021-12-07 13:23 | Consultation - Surgery ---
History of Present Illness History of Present Illness Patient Consulted On(bro/time) 12/07/21 08:23 Date Seen by Provider: Dec 07, 2021 Time Seen by Provider: 08:23 History of Present Illness Consult requested by Dr. Vogel for abdominal pain. Patient is an 86 year old demented patient. His is at bedside. She states he has not been feeling well for about 3 days. Having worsening back pain and pain in the right upper quadrant. Not has any appetite the last 3 days. Not acting himself. He was found to have elevated wbc and lactic acid. He had ct scan demonstrating a small amount of air in gallbladder also aaa with stent slightly larger from last measurement may be related to endoleak. Also elevated bilirubin. Patient states he also has CKD and overall not sure what they want to do with his care. She does not think they want any type of surgery. Allergies and Home Medications Allergies Coded Allergies: bacitracin (Unverified Allergy, Unknown, 05/16/06) gramicidin D (Unverified Allergy, Unknown, 05/16/06) iodine (Unverified Allergy, Unknown, 05/16/06) neomycin (Unverified Allergy, Unknown, 05/16/06) polymyxin B (Unverified Allergy, Unknown, 05/16/06) povidone-iodine (Unverified Allergy, Unknown, 05/16/06) soap (Unverified Allergy, Unknown, 05/16/06) Patient Home Medication List Home Medication List Reviewed: Yes Albuterol Sulfate (Ventolin Hfa) 18 Gm Hfa.aer.ad, 2 PUFF INH TID PRN for SHORTNESS OF BREATH, (Reported) Entered as Reported by: ROSARIO BOYD on 09/20/181139 Last Action: Reviewed Apixaban (Eliquis) 2.5 Mg Tablet, 2.5 MG PO BID, (Reported) Entered as Reported by: ROSARIO BOYD on 09/20/181129 Last Action: Reviewed Calcitriol (Calcitriol) 0.25 Mcg Capsule, 0.25 MCG PO MO,FR, (Reported) Entered as Reported by: ROSARIO BOYD on 09/20/181129 Last Action: Reviewed Cetirizine HCl (Cetirizine HCl) 10 Mg Tablet, 10 MG PO DAILY, (Reported) Entered as Reported by: CADY SWENSON on 12/07/211531 Last Action: Reviewed Cholecalciferol (Vitamin D3) (Vitamin D3) 25 Mcg (1000 Unit) Capsule, 25 MCG PO MON,MON, (Reported) Entered as Reported by: CADY SWENSON on 12/07/211531 Last Action: Reviewed Memantine HCl (Memantine HCl ER) 28 Mg Cap.spr.24, 28 MG PO DAILY, (Reported) Entered as Reported by: CADY SWENSON on 12/07/211531 Last Action: Reviewed Metoprolol Tartrate (Metoprolol Tartrate) 25 Mg Tablet, 12.5 MG PO BID WITH MEALS, (Reported) Entered as Reported by: ROSARIO BOYD on 09/20/181129 Last Action: Reviewed Sodium Bicarbonate (Sodium Bicarbonate) 650 Mg Tablet, 325 MG PO DAILY, (Reported) Entered as Reported by: ROSARIO BOYD on 09/20/181142 Last Action: Reviewed Tamsulosin HCl (Flomax) 0.4 Mg Cap, 0.4 MG PO HS, (Reported) Entered as Reported by: ROSARIO BOYD on 09/20/181129 Last Action: Reviewed Discontinued Medications Cefdinir (Cefdinir) 300 Mg Capsule, 300 MG PO BID Discontinued Reason: No Longer Taking Prescribed by: ELIJAH MULLEN on 09/22/181136 Last Action: Discontinued Cholecalciferol (Vitamin D3) (Vitamin D3) 1,000 Unit Capsule, 1,000 UNIT PO DAILY, (Reported) Discontinued Reason: Prescription changed Entered as Reported by: ROSARIO BOYD on 09/20/18 114 Clopidogrel Bisulfate (Clopidogrel) 75 Mg Tablet, 75 MG PO DAILY, (Reported) Discontinued Reason: No Longer Taking Entered as Reported by: ROSARIO BOYD on 09/20/181129 Last Action: Discontinued Ferrous Sulfate (Iron) 325 Mg Tablet, 325 MG PO Q48H, (Reported) Discontinued Reason: No Longer Taking Entered as Reported by: ROSARIO BOYD on 09/20/181144 Last Action: Discontinued Loratadine (Loratadine) 10 Mg Tablet, 10 MG PO DAILY, (Reported) Discontinued Reason: No Longer Taking Entered as Reported by: ROSARIO BOYD on 09/20/181139 Last Action: Discontinued Memantine HCl (Memantine HCl) 10 Mg Tablet, 10 MG PO BID, (Reported) Discontinued Reason: Duplicate Order Entered as Reported by: ROSARIO BOYD on 09/20/18 1130 Last Action: Discontinued Prednisone (Prednisone) 10 Mg Tab.ds.pk, 10 MG PO DAILY Discontinued Reason: Duplicate Order Prescribed by: ELIJAH MULLEN on 09/22/18 1137 Last Action: Discontinued Promethazine HCl/Codeine (Promethazine-Codeine Syrup) 118 Ml Syrup, 5-10 ML PO Q8H PRN for COUGH, (Reported) Discontinued Reason: No Longer Taking Entered as Reported by: ROSARIO BOYD on 09/20/181129 Last Action: Discontinued Past Icenebs-Enoyrt-Ztdpkl Hx Patient Social History Recent Hopitalizations: No Alcohol Use?: No (Prior heavy alcohol consumption) Have you traveled recently?: No Seasonal Allergies Seasonal Allergies: Yes Surgeries History of Surgeries: Yes (5 YRS AGO, 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, ANEURYSM REPAIR) Surgeries: Vascular Surgery (AAA stenting) Respiratory History of Respiratory Disorde: Yes Respiratory Disorders: COPD Cardiovascular History of Cardiac Disorders: Yes (PAD, AAA) Cardiac Disorders: Peripheral Vascular Neurological History of Neurological Disord: Yes Neurological Disorders: Dementia Reproductive System Hx Reproductive Disorders: No Genitourinary History of Genitourinary Disor: Yes (STG 4 KIDNEY DISEASE) Genitourinary Disorders: Prostate Problems Gastrointestinal History of Gastrointestinal Di: Yes Gastrointestinal Disorders: Gastroesophageal Reflux Musculoskeletal Musculoskeletal Disorders: Fractures Endocrine History of Endocrine Disorders: No HEENT History of HEENT Disorders: Yes HEENT Disorders: Cataract, Dysphagia Hearing Impairment: Hard of Hearing Cancer History of Cancer: No Psychosocial History of Psychiatric Problem: No Blood Transfusions History of Blood Disorders: Yes (DVT ) Reviewed Nursing Assessment Reviewed/Agree w Nursing PMH: Yes Family Medical History Significant Family History: No Pertinent Family Hx Review of Systems-General ROS-Unable to Obtain: from Constitutional: No chills, No diaphoresis EENTM: No blurred vision, No double vision Respiratory: cough; No dyspnea on exertion Cardiovascular: No chest pain, No palpitations Gastrointestinal: abdominal pain (RUQ), jaundice Genitourinary: No decreased output, No discharge Musculoskeletal: No back pain, No joint pain Skin: No change in color, No change in hair/nails Psychiatric/Neurological: Denies Anxiety, Denies Depressed, Denies Emotional Problems All Other Systems Reviewed Negative Unless Noted: Yes (Negative excepted noted.) Physical Exam-General Problems Physical Exam Vital Signs Vital Signs - First Documented 12/06/21 12/07/21 22:25 02:30 Temp 36.7 Pulse 88 Resp 20 B/P (MAP) 146/97 (113) Pulse Ox 92 O2 Delivery Room Air O2 Flow Rate 2.00 Capillary Refill : Less Than 3 Seconds General Appearance: WD/WN, no apparent distress HEENT: PERRL/EOMI, normal ENT inspection, scleral icterus (R), scleral icterus (L) Neck: non-tender, supple Respiratory: chest non-tender, no respiratory distress, no accessory muscle use Cardiovascular: regular rate, rhythm, no JVD Gastrointestinal: soft, tenderness (ruq), other (palpable enlarged AAA) Rectal: deferred Back: no CVA tenderness, no vertebral tenderness Extremities: non-tender, normal inspection Neurologic/Psychiatric: alert; No oriented x 3 Skin: No normal color; warm/dry, jaundice Lymphatic: no adenopathy Data Review Labs Laboratory Tests 12/06/21 22:28: White Blood Count 14.0H, Red Blood Count 5.04, Hemoglobin 15.5, Hematocrit 48, Mean Corpuscular Volume 94, Mean Corpuscular Hemoglobin 31, Mean Corpuscular Hemoglobin Concent 33, Red Cell Distribution Width 15.5H, Platelet Count 106L, Mean Platelet Volume 10.7, Immature Granulocyte % (Auto) 1, Neutrophils (%) (Auto) 87H, Lymphocytes (%) (Auto) 7L, Monocytes (%) (Auto) 4, Eosinophils (%) (Auto) 0, Basophils (%) (Auto) 0, Neutrophils # (Auto) 12.3H, Lymphocytes # (Auto) 0.9L, Monocytes # (Auto) 0.6, Eosinophils # (Auto) 0.0, Basophils # (Auto) 0.1, Immature Granulocyte # (Auto) 0.2H, Neutrophils % (Manual) 88, Lymphocytes % (Manual) 6, Monocytes % (Manual) 6, Percent Immature Platelet Fraction 2.4, [place] Cells SLIGHT, Blood Morphology Comment NORMAL, Prothrombin Time 15.8H, INR Comment 1.2, Activated Partial Thromboplast Time 29, Sodium Level 141, Potassium Level 5.9H, Chloride Level 107, Carbon Dioxide Level 16L, Anion Gap 18H, Blood Urea Nitrogen 39H, Creatinine 2.24H, Estimat Glomerular Filtration Rate 28, BUN/Creatinine Ratio 17, Glucose Level 233H, Lactic Acid Level 3.35*H, Calcium Level 9.0, Corrected Calcium 9.3, Magnesium Level 2.1, Total Bilirubin 5.7H, Aspartate Amino Transf (AST/SGOT) 78H, Alanine Aminotransferase (ALT/SGPT) 53, Alkaline Phosphatase 221H, C-Reactive Protein High Sensitivity 11.80H, Total Protein 7.3, Albumin 3.6, Procalcitonin 0.20H 12/06/21 22:58: Influenza Type A (RT-PCR) Not Detected, Influenza Type B (RT-PCR) Not Detected, SARS-CoV-2 RNA (RT-PCR) Not Detected 12/07/21 00:42: Lactic Acid Level 3.90*H, Urine Color DARK YELLOW, Urine Clarity SL CLOUDY, Urine pH 5.5, Urine Specific [place] 1.025H, Urine Protein 1+H, Urine Glucose (UA) TRACEH, Urine Ketones 2+H, Urine Nitrite NEGATIVE, Urine Bilirubin 1+H, Urine Urobilinogen 4.0, Urine Leukocyte Esterase NEGATIVE, Urine RBC (Auto) 2+H, Urine RBC 0-2, Urine WBC NONE, Urine Squamous Epithelial Cells 0-2, Urine Crystals NONE, Urine Bacteria TRACE, Urine Casts NONE, Urine Mucus SMALLH, Urine Culture Indicated CULTURE PENDING 12/07/21 02:50: Lactic Acid Level 1.91 12/07/21 10:20: White Blood Count 17.5H, Red Blood Count 4.31, Hemoglobin 13.3, Hematocrit 40, Mean Corpuscular Volume 94, Mean Corpuscular Hemoglobin 31, Mean Corpuscular Hemoglobin Concent 33, Red Cell Distribution Width 15.4H, Platelet Count 79L, Mean Platelet Volume 10.4, Percent Immature Platelet Fraction 2.1, Sodium Level 144, Potassium Level 4.7, Chloride Level 114H, Carbon Dioxide Level 20L, Anion Gap 10, Blood Urea Nitrogen 37H, Creatinine 2.45H, Estimat Glomerular Filtration Rate 25, BUN/Creatinine Ratio 15, Glucose Level 166H, Calcium Level 8.2L Assessment/Plan Assessment/Plan Assessment/Plan ruq abdominal pain jaundice AAA c prior stent CKD Anticoagulation longterm u/s showing cbd upper limits of normal and sludge present in gallbladder, c oncerned for blockage of cbd and ascending cholangitis AAA c prior stent, slightly enlarged from last scans here, they follow somewhere else for this. Could be due to endoleak but could be nothing as well depending on last scans. Feel patient would benefit from ERCP to clean out duct His has expressed that they are not sure what they are willing to consent for due to overall condition of patient. She is discussing with other family members. I also discussed with Dr. Vogel who is going to go back and discuss further with patient family. Will await family decisions. MALENA CLAUDIO DO Dec 07, 2021 13:23
--- NOTE | 2021-12-07 13:25 | Occupational Therapy Eval ---
OT Evaluation-General/PLF Medical Diagnosis Admission Date Dec 07, 2021 at 01:37 Medical Diagnosis: AMS, abdominal pain, lactic acidosis Onset Date: Dec 07, 2021 Therapy Diagnosis Therapy Diagnosis: cognitive decline, impaired adl status Height/Weight Height (Feet): 5 Height (Inches): 9.00 Weight (Pounds): 151 Weight (Ounces): 0.0 Precautions Precautions/Isolations: Fall Prevention, Standard Precautions, Pressure Ulcer Referral Physician: Lela Referral Reason: Evaluation/Treatment Medical History Pertinent Medical History: COPD, Dementia, GERD Additional Medical History CKD Current History Pt presented to ER with increased weakness, excessive fatigue, and decreased oral intake. Pt is a poor historian, all PLOF provided by . Pt lives at home with spouse in a single story home. His spouse reports that she usually has to provide assist with washing all body parts as pt does not initiate using soap or washing. states pt is mod a for dressing and toileting. He uses a cane intermittently but does not like to use it due to "pride." Reviewed History: Yes Social History Home: Single Level Current Living Status: Spouse Entry Into Home: Stairs With Railing Steps Into Home: 4 ADL-Prior Level of Function SCALE: Activities may be completed with or without assistive devices. 8-Hlqgdevjeu-bhrzjsl completes the activity by him/herself with no assistance from a helper. 5-Set-up or Clean-up Assistance-helper sets up or cleans up; patient completes activity. [place] assists only prior to or following the activity. 4-Supervision or Touching Assistance-helper provides verbal cues and/or touching/steadying and/or contact guard assistance as patient completes activity. Assistance may be provided throughout the activity or intermittently. 3-Partial/Moderate Assistance-helper does LESS THAN HALF the effort. [place] lifts, holds or supports trunk or limbs, but provides less than half the effort. 2-Substantial/Maximal Assistance-helper does MORE THAN HALF the effort. [place] lifts or holds trunk or limbs and provides more than half the effort. 1-Yewaemdey-tyqsmf does ALL the effort. Patient does none of the effort to complete the activity. Or, the assistance of 2 or more helpers is required for the patient to complete the activity. If activity was not attempted, code reason: 7-Patient Refused. 9-Not Applicable-not attempted and the patient did not perform the activity before the current illness, exacerbation or injury. 10-Not Attempted due to Environmental Limitations-(lack of equipment, weather restraints, etc.). 88-Not Attempted due to Medical Conditions or Safety Concerns. Self Care: Needed Some Help Functional Cognition: Dependent DME/Equipment: Bath Chair, Grab Bars, Shower Drive Self: No OT Current Status Subjective Pt difficult to understand. Poor historian. History of dementia. Requires simplification with all commands. Appearance Pt left supine in bed, all needs within reach, in the room at OT departure. Mental Status/Objective Patient Orientation: Confused Attachments: IV Current Glasses/Contacts: Yes Hearing Aids: No Hand Dominance: Right Upper Extremity ROM Difficulty following directions. Pt was able to demonstrate R shoulder flexion to ~150 degrees. History of bilateral Dupuytren's contractures. Upper Extremity Strength Unable to follow directions, however appears to have good strength. Pt likely at least 3+/5 ADL-Treatment Pt sidelying in bed at OT arrival. When asked to participate, he becomes tearful. He is unable to answer if he is experiencing any pain or why he does not want to participate. He was able to follow very simple 1 steps directions, but requires cues to terminate as he continued to raise arm over head. Limited assessment performed as Pt refused all OOB/EOB activity and exhibits increased agitation with requests. Education OT Patient Education: Purpose of tx/functional activities, Safety issues Teaching Recipient: Patient, Family Teaching Methods: Discussion Response to Teaching: Reinforcement Needed OT Differential Repairer Goals Intermediate Goals Time Frame: Dec 21, 2021 Eating (QC): 4 Oral Hygiene (QC): 4 Toileting Hygiene (QC): 3 Shower/Bathe Self (QC): 2 Upper Body Dressing (QC): 3 Lower Body Dressing (QC): 3 On/Off Footwear (QC): 3 1=Demonstrate adherence to instructed precautions during ADL tasks. 2=Patient will verbalize/demonstrate understanding of assistive devices/modifications for ADL. 3=Patient will improve strength/tolerance for activity to enable patient to perform ADL's. OT Education/Plan Problem List/Assessment Assessment: Decreased Activ Tolerance, Decreased Safety Aware, Decreased UE Strength, Impaired Cognition, Impaired Funct Balance, Impaired Self-Care Skills, Restricted Funct UE ROM Discharge Recommendations Plan/Recommendations: Continue POC Target Placement ongoing assessment Treatment Plan/Plan of Care Treatment,Training & Education: Yes Patient would benefit from OT for education, treatment and training to promote independence in ADL's, mobility, safety and/or upper extremity function for ADL's. Plan of Care: ADL Retraining, Caregiver Training, Cognitive Retraining, Functional Mobility, Group Exercise/Act as Ind, UE Funct Exercise/Act, W/C Man agement Training Treatment Duration: Dec 21, 2021 Frequency: 3 times per week (3-5x/week) Estimated Hrs Per Day: .25 hour per day Rehab Potential: Guarded Time/GCodes Start Time: 13:04 Stop Time: 13:17 Total Time Billed (hr/min): 13 Billed Treatment Time 1 visit Ailyn Hu OT Dec 07, 2021 13:25
--- NOTE | 2021-12-07 14:07 | Physical Therapy Progress Note ---
Therapy Progress Note Patient is in bed and is agitated. Spouse present. PT will attempt in a.m. to allow patient to calm due to just admitted at ~3 a.m. on this date. 1 visit MARKUS DE LA O PT Dec 07, 2021 14:07
[2021-12-07] MEDS ORDERED: MEMA28CA16 PO (15:32)
[2021-12-07] MEDS ORDERED: CETI10TA17 PO (15:32)
[2021-12-07] MEDS ORDERED: CHOL10007 PO (15:32)
[2021-12-07 16:06] VITALS: BP 103/61
[2021-12-07 18:00] VITALS: BP 103/61
== END 2021-12-07 18:04 | disposition short-term general hospital (02) | DRG 445 ==
LOC: EDUNIT# 21:42 → ER 21:44 → EDLOC 12-07 01:37 → 4TH 12-07 01:37
PROVIDERS: ADMIT Internal Medicine; ATTEND Internal Medicine
DX: K81.9 Cholecystitis, unspecified (principal); N18.4 Chronic kidney disease, stage 4 (severe); E87.2 Acidosis; F03.90 Unspecified dementia, unspecified severity, without behavioral disturbance, psychotic disturbance, mood disturbance, and anxiety; J44.9 Chronic obstructive pulmonary disease, unspecified; K21.9 Gastro-esophageal reflux disease without esophagitis; Z66 Do not resuscitate; Z20.822 Contact with and (suspected) exposure to COVID-19; I73.9 Peripheral vascular disease, unspecified; R41.82 Altered mental status, unspecified; Z88.1 Allergy status to other antibiotic agents; Z91.041 Radiographic dye allergy status; Z79.01 Long term (current) use of anticoagulants
CPT/HCPCS: 36415; 51702; 71045; 71250; 74176; 76705; 80048; 80053; 81000; 83605; 83735; 84145; 85007; 85027; 85610; 85730; 86141; 87040; 87088; 87636; 94760

== ENCOUNTER → 2022-02-08 | Outpatient (CLI) | payer MEDICARE ==
[~2022-02-08] MED LIST changes: +CETI10TA17 PO; +MEMA28CA16 PO
--- NOTE | 2022-02-08 19:15 | Diagnostic Imaging Report ---
INDICATION: Pain, swelling. COMPARISON: None available. TECHNIQUE: 3 radiographs of the left ankle dated 02/08/2022. FINDINGS: No acute fracture or dislocation. No destructive osseous process. The talar dome is unremarkable. Ankle mortise is symmetric. Soft tissue swelling is noted about the ankle. No significant calcaneal enthesophytes. IMPRESSION: No acute osseous abnormality with soft tissue swelling noted about the ankle. Dictated by: Dictated on workstation # [id number]
== END ==
LOC: RAD 11:47
PROVIDERS: ATTEND Family Medicine
DX: M25.572 Pain in left ankle and joints of left foot (principal); M25.472 Effusion, left ankle; M79.89 Other specified soft tissue disorders
CPT/HCPCS: 73610